=== PATIENT | male | born 1950 | race Caucasian/White ===

== ENCOUNTER → 2021-01-21 13:20 | Outpatient (BNVA) | payer MEDICARE, OTHER, SELFPAY | PROVIDERS: PCP Family Medicine; Visit Provider Nurse Practitioner Gerontology | DX: E11.42 Type 2 diabetes mellitus with diabetic polyneuropathy (principal); E11.65 Type 2 diabetes mellitus with hyperglycemia; E11.29 Type 2 diabetes mellitus with other diabetic kidney complication; E66.09 Other obesity due to excess calories; R80.9 Proteinuria, unspecified; I10 Essential (primary) hypertension; E78.00 Pure hypercholesterolemia, unspecified; Z68.33 Body mass index [BMI] 33.0-33.9, adult; Z79.4 Long term (current) use of insulin | CPT/HCPCS: 82947; 99212 ==

== ENCOUNTER 2021-02-03 13:49 | Outpatient (REF) | payer MEDICARE, OTHER, SELFPAY ==
--- NOTE | 2021-02-03 | PFT_ITS ---
INDICATION: Nicotine dependence and cough. SPIROMETRY: The FEV1 to FVC 84% with an FEV1 of 2.92 L, which is 96% predicted, and an FVC of 3.48 L, which is 88% predicted. No significant response to bronchodilators noted. Maximum voluntary ventilation 101% predicted. LUNG VOLUMES: Total lung capacity 85% predicted. DIFFUSION CAPACITY: DLCO 92% predicted. COMPARISONS: None available. INTERPRETATION: No obstructive nor restrictive ventilatory defects have been identified. No significant response to bronchodilators noted. Normal maximum voluntary ventilation. Lung volumes are low normal. Diffusion capacity is within normal limits. Clinical correlation warranted. Jerad Fong MD MR/MODL / [id number]
== END 2021-02-03 13:50 | disposition home or self-care (01) ==
LOC: HO.RESP 13:49
PROVIDERS: PCP Family Medicine; Visit Provider Family Medicine
DX: F17.200 Nicotine dependence, unspecified, uncomplicated (principal)
CPT/HCPCS: 94060; 94727; 94729; Q3014

== ENCOUNTER 2021-03-25 14:38 | Outpatient (REF) | payer MEDICARE, OTHER, SELFPAY ==
--- NOTE | ~2021-03-25 | CT_ITS ---
EXAMINATION: CT CHEST SCREENING CLINICAL INFORMATION: Nicotine dependence. COMPARISON: None. TECHNIQUE: Multidetector volumetric CT imaging of the chest is performed without contrast using low dose technique. Additional 2D coronal and sagittal reformatted images and axial 3D maximum intensity projection (MIP) images are generated on the CT workstation. This CT examination was performed using dose optimization techniques as appropriate, variously including the following: *Automated exposure control *Adjustment of mA and/or kV according to patient size (this includes techniques or standardized protocols for targeted exams where dose is matched to indication/reason for exam; i.e. extremities or head) *Use of iterative reconstruction technique DLP: 70 mGy-cm FINDINGS: LUNGS: The lungs are well expanded without any acute pneumonic process. There is a 3 mm calcified nodule left upper lobe axial image 104/6, 1 mm subpleural calcified nodule right upper lobe axial image 130/6, 2 mm calcified nodule right lower lobe axial image 179/6, 3 mm noncalcified nodule right lower lobe adjacent to the major fissure axial image 185/6. Mild 5 mm focal nodular thickening along the right minor fissure axial image 200/6, 2 mm calcified nodule in the lingula axial image 242/6. There is no mass, ground-glass density or atelectatic changes. MEDIASTINUM: The heart size and the great vessels are normal caliber. There are coronary artery calcifications. The central trachea and the bronchi are widely patent. The thyroid lobes are symmetrical and normal. PLEURA: There is no pleural effusion. No pleural mass or thickening. AXILLA: There are small scattered axillary lymph nodes. UPPER ABDOMEN: Visualized liver, spleen, pancreas and bilateral adrenal glands are unremarkable. OSSEOUS STRUCTURES: There is moderate ventral spondylosis dorsal spine. No lytic or sclerotic process seen. CT/CT lung screening IMPRESSION: Several calcified nodules measuring in the range of 1 to 3 mm. There is a 4 mm nodule in the right minor fissure likely an intrafissural lymph node. A 3 mm noncalcified nodule is seen in the right lower lobe. ASSESSMENT: Lung-RADS category 2: Benign. RECOMMENDATION: Low-dose annual CT chest.
== END 2021-03-25 14:39 | disposition home or self-care (01) ==
LOC: HO.CT 14:38
PROVIDERS: Visit Provider Physician Assistant Medical
DX: Z12.2 Encounter for screening for malignant neoplasm of respiratory organs (principal); F17.210 Nicotine dependence, cigarettes, uncomplicated
CPT/HCPCS: 71271; G0296

== ENCOUNTER → 2021-06-15 07:26 | Outpatient (BNVA) | payer MEDICARE, MEDICAID, SELFPAY | PROVIDERS: PCP Family Medicine; Visit Provider Nurse Practitioner Gerontology | CPT/HCPCS: Q3014 ==

== ENCOUNTER 2021-06-22 05:58 | Outpatient (REF) | payer MEDICARE, MEDICAID, SELFPAY ==
[2021-06-22 07:33] LABS: Alanine Aminotransferase 13 U/L (0-40); Albumin Level 4.1 g/dL (3.5-5.0); Alkaline Phosphatase 108 U/L (39-117); Anion Gap 14 (12-20); Aspartate Amino Transferase 15 U/L (5-37); Bilirubin Total 0.4 mg/dL (0.0-1.0); Blood Urea Nitrogen 15 mg/dL (9-16); Calcium 9.2 mg/dL (8.4-10.2); Carbon Dioxide 36 mmol/L (22-29); Chloride 98 mmol/L (96-108); Cholesterol 172 mg/dL; Estimated Glomerular Filt Rate > 60; Glucose Fasting 104 mg/dL (60-99); HDL Cholesterol 36 mg/dL; LDL Cholesterol Calculated 87 mg/dl; Potassium 3.7 mmol/L (3.3-5.1); Sodium 144 mmol/L (135-145); Total Protein 7.1 g/dL (6.5-8.0); Triglycerides 247 mg/dL
[2021-06-22 07:40] LABS: Estimated Average Glucose 203 mg/dL; Hemoglobin A1c % 8.7 %
[2021-06-22 07:57] LABS: Free T4 (Free Thyroxine) 0.96 ng/dL (0.71-1.85); Thyroid Stimulating Hormone 1.51 uIU/mL (0.32-4.0)
[2021-06-22 08:02] LABS: Creatinine Urine 113.26 mg/dL; Microalbum/Creatinine Ratio Ur 117.4 ug/mg cr
[2021-06-22 08:25] LABS: Vitamin B12 547 pg/mL (200-900)
[2021-06-24 05:31] LABS: LDL Cholesterol Direct 91 mg/dL (<100)
== END 2021-06-22 05:59 | disposition home or self-care (01) ==
LOC: HO.LAB 05:58
PROVIDERS: PCP Family Medicine; Visit Provider Nurse Practitioner Gerontology
DX: E11.65 Type 2 diabetes mellitus with hyperglycemia (principal)
CPT/HCPCS: 36415; 80053; 80061; 82043; 82607; 83036; 83721; 84439; 84443

== ENCOUNTER → 2021-10-26 07:12 | Outpatient (BNVA) | payer MEDICARE, MEDICAID, SELFPAY | PROVIDERS: PCP Family Medicine; Visit Provider Nurse Practitioner Gerontology | DX: E11.42 Type 2 diabetes mellitus with diabetic polyneuropathy (principal); E11.65 Type 2 diabetes mellitus with hyperglycemia; E11.29 Type 2 diabetes mellitus with other diabetic kidney complication; I10 Essential (primary) hypertension; R80.9 Proteinuria, unspecified; E78.00 Pure hypercholesterolemia, unspecified; E66.09 Other obesity due to excess calories; Z68.33 Body mass index [BMI] 33.0-33.9, adult; Z79.4 Long term (current) use of insulin | CPT/HCPCS: 82947; 99212 ==

== ENCOUNTER → 2021-12-22 08:04 | Outpatient (BNVA) | payer MEDICARE, MEDICAID, SELFPAY | PROVIDERS: PCP Family Medicine; Visit Provider Registered Nurse Diabetes Educator | DX: E11.65 Type 2 diabetes mellitus with hyperglycemia (principal) | CPT/HCPCS: 99211 ==

== ENCOUNTER → 2023-01-22 10:44 | Outpatient (BNVA) | payer MEDICARE, MEDICAID, SELFPAY | PROVIDERS: PCP Family Medicine; Visit Provider Surgery ==

== ENCOUNTER 2023-07-12 09:46 | Outpatient (REF) | payer MEDICARE, MEDICAID, SELFPAY | END 2023-07-12 09:47 | disposition home or self-care (01) | LOC: HO.HHCL 09:46 | PROVIDERS: Visit Provider Family Medicine | DX: E11.65 Type 2 diabetes mellitus with hyperglycemia (principal); Z11.59 Encounter for screening for other viral diseases; Z79.4 Long term (current) use of insulin | CPT/HCPCS: 36415; 82570; 84156; 86803; 87522 ==

== ENCOUNTER 2023-07-30 15:12 | Outpatient (AMB) | payer MEDICARE, MEDICAID, SELFPAY ==
--- NOTE | 2023-07-30 15:31 | MHC.OFFVIS ---
Intake Vital Signs 07/30/23 15:39 Weight 192 lb BP 138/65 Blood Pressure Location Rt brachial Position Sitting Pulse 102 H Intake Visit Reasons: recall colonoscopy screening Intake Note: This patient presents for a recall colonoscopy screening. Patient c/o reports no complaints at this time. Saw Maker Required: No Accompanied by: Self / Same As Patient Allergies No Known Allergies Allergy (Unverified 07/30/23 15:40) Medication List - Last Reconciled 07/30/23 by Ashok Bo MD amlodipine 5 mg PO DAILY aspirin 81 mg PO QAM atorvastatin 80 mg PO DAILY blood sugar diagnostic As directed dulaglutide (Trulicity) 1.5 mg (0.5 mL) subcut QWEEK 28 days empagliflozin (Jardiance) 25 mg PO QAM hydrochlorothiazide 25 mg PO DAILY insulin glargine (Lantus Solostar U-100 Insulin) 54 units (0.54 mL) subcut QPM insulin lispro (Humalog KwikPen (U-100) Insulin) 12 units breakfast, 14 units lunch, 16 units dinner, + 2 units for bg over 200 subcut 3 times a day; lisinopril 10 mg PO DAILY metformin 850 mg PO BID methadone 10 mg PO DAILY sennosides (Natural Senna Laxative) 8.6 mg PO DAILY PRN HPI recall colonoscopy screening HPI Details 72-year-old male here to schedule for a follow-up colonoscopy. He has a family history of colon cancer and he undergoes screening colonoscopy every 5 years. His last colonoscopy in 2018 showed 1 tubular adenoma. He denies any GI complaints. He says he feels well overall. His brother was diagnosed to have colon cancer at age of 48. [facility] Medical History (Updated 07/30/23 @ 16:23 by Ashok Bo MD) Family history of colon cancer History of opioid abuse Personal history of nicotine dependence Tubular adenoma of colon Type 2 diabetes mellitus with other diabetic kidney complication Proteinuria Type 2 diabetes mellitus with diabetic polyneuropathy HLD (hyperlipidemia) Obesity due to excess calories BPH (benign prostatic hyperplasia) COPD (chronic obstructive pulmonary disease) HTN (hypertension) Diabetes type 2, uncontrolled (~2009) Surgical History History of colonoscopy History of total left knee replacement Hx of appendectomy History of back surgery Family History Father Cancer Mother Diabetes Sister Diabetes Sister Diabetes Social History Household Members: None Alcohol intake: current Alcohol intake frequency: does not drink Patient Tobacco Use Status: Current everyday Tobacco user Tobacco use type: Cigarette Cigarettes Per Day: 3 Years Smoked: 51 (onset 19, 1ppd x 51 yrs, now 1/4ppd - 45+PYH) Review of Systems Const Denies chills and Denies fever(s) Card Denies chest pain, Denies dyspnea and Denies dyspnea on exertion Resp Denies cough, Denies dyspnea and Denies dyspnea on exertion GI Denies hematochezia and Denies change in bowel habits Denies hematuria and Denies difficulty urinating Musc Denies back pain and Denies limited range of motion Neuro Denies focal weakness and Denies convulsions Psych Denies depression and Denies mood swings Physical Exam Vital Signs: Last Vital Signs Pulse 102 H 07/30/23 15:39 BP 138/65 07/30/23 15:39 Const General: comfortable and no acute distress Orientation/consciousness: patient oriented x3 Neck Neck: Yes no lymphadenopathy Resp Auscultation: clear to auscultation bilaterally Cardio Rhythm: regular rhythm GI Palpation (GI): Soft to palpation, nontender and no guarding Neuro General: patient oriented x3 Assessment & Plan Assessment & Plan (1) Family history of colon cancer: Code(s): Z80.0 - Family history of malignant neoplasm of digestive organs Plan: In view of his family history of colon cancer, he is due for a repeat this year. I reviewed with him the technique of colonoscopy. I discussed the risks including but not limited to bleeding, perforation, as well as the benefits and alternatives He understands and wants to proceed. Coding Level of Care Code New Pt Level 3 (09894) Diagnoses Family history of colon cancer Z80.0
[2023-07-30 15:39] VITALS: BP 138/65; PULSE 102
== END 2023-07-30 16:25 ==
PROVIDERS: PCP Family Medicine; Visit Provider Surgery
DX: Z80.0 Family history of malignant neoplasm of digestive organs (principal)
CPT/HCPCS: 99203

== ENCOUNTER → 2023-07-30 15:12 | Outpatient (BNVA) | payer MEDICARE, MEDICAID, SELFPAY | PROVIDERS: PCP Family Medicine; Visit Provider Surgery | DX: Z86.010 Personal history of colon polyps (principal); Z80.0 Family history of malignant neoplasm of digestive organs | CPT/HCPCS: 99202 ==

== ENCOUNTER 2023-11-02 06:46 | Day surgery (SDC) | payer MEDICARE, MEDICAID, SELFPAY ==
--- NOTE | 2023-10-31 14:59 | HO.ANESPROP2 ---
Documented by User: Keila Adams NP 10/31/23 15:00 HPI - Anesthesia Eval Consult details Narrative: 72yo M for Colonoscopy, possible Polypectomy Methadone daily Anesthesia Pre-Procedure Meds Is the patient on any of the following meds?: Dulaglutide (Trulicity) and Any other SGL-1 drugs or drugs that delay gastric emptying (Jardiance) PMFSH Active Problems Active Problems: All Active Problems Family history of colon cancer (Acute) Diabetes type 2, uncontrolled (Acute ~2009) Type 2 diabetes mellitus with other diabetic kidney complication (Acute) Type 2 diabetes mellitus with diabetic polyneuropathy (Acute) Proteinuria (Acute) HTN (hypertension) (Acute) HLD (hyperlipidemia) (Acute) Obesity due to excess calories (Acute) Personal history of nicotine dependence (Acute) Past Medical History Medical History Family history of colon cancer History of opioid abuse Personal history of nicotine dependence Tubular adenoma of colon Type 2 diabetes mellitus with other diabetic kidney complication Proteinuria Type 2 diabetes mellitus with diabetic polyneuropathy HLD (hyperlipidemia) Obesity due to excess calories BPH (benign prostatic hyperplasia) COPD (chronic obstructive pulmonary disease) HTN (hypertension) Diabetes type 2, uncontrolled (~2009) Family History Family History Father Cancer Mother Diabetes Sister Diabetes Sister Diabetes Surgical History Surgical History History of colonoscopy History of total left knee replacement Hx of appendectomy History of back surgery Social History Social History Household Members: None Alcohol intake: current Alcohol intake frequency: does not drink Patient Tobacco Use Status: Never used Tobacco Tobacco use type: Cigarette Cigarettes Per Day: 3 Years Smoked: 51 (onset 19, 1ppd x 53 yrs, now 1/4ppd - 45+PYH) Use of substances other than those prescribed or required for medical reasons: No Are you DNR?: No Advance Directives: No Advance Directives Information Provided: Yes Meds Allergies Allergy/AdvReac Type Severity Reaction Status Date / Time No Known Allergies Allergy Verified 11/02/23 07:12 Home Medications ?Medication ?Instructions ?Recorded ?Confirmed ?Last Taken ?Type amlodipine 5 mg tablet 5 mg PO DAILY 01/21/21 11/02/23 11/01/23 History atorvastatin 80 mg tablet 80 mg PO DAILY 01/21/21 11/02/23 11/01/23 History blood sugar diagnostic #10 ea 01/21/21 07/30/23 Unknown History hydrochlorothiazide 25 mg tablet 25 mg PO DAILY 01/21/21 11/02/23 11/01/23 History lisinopril 10 mg tablet 10 mg PO DAILY 01/21/21 11/02/23 11/01/23 History metformin 850 mg tablet 850 mg PO BID 01/21/21 11/02/23 11/01/23 History methadone 10 mg tablet 10 mg PO DAILY 01/21/21 07/30/23 Unknown History sennosides 8.6 mg tablet (Natural 8.6 mg PO DAILY PRN constipation 01/21/21 11/02/23 11/01/23 History Senna Laxative) Assessment and Plan Assessment Anesthesia Assessment: Chart Reviewed Documented by User: Sherie Lee MD 11/02/23 08:08 HPI - Anesthesia Eval Anesthesia Pre-Procedure Meds If Yes to any meds - educate patient: Pt education - increased risk of aspiration and Pt education - possibility of cancelled proc at provider's discretion PMFSH Past Medical History Medical History Family history of colon cancer History of opioid abuse Personal history of nicotine dependence Tubular adenoma of colon Type 2 diabetes mellitus with other diabetic kidney complication Proteinuria Type 2 diabetes mellitus with diabetic polyneuropathy HLD (hyperlipidemia) Obesity due to excess calories BPH (benign prostatic hyperplasia) COPD (chronic obstructive pulmonary disease) HTN (hypertension) Diabetes type 2, uncontrolled (~2009) Family History Family History Father Cancer Mother Diabetes Sister Diabetes Sister Diabetes Family history of problems with anesthesia: No Surgical History Surgical History History of colonoscopy History of total left knee replacement Hx of appendectomy History of back surgery History of Problems with Anesthesia: No Social History Social History Household Members: None Alcohol intake: current Alcohol intake frequency: does not drink Patient Tobacco Use Status: Never used Tobacco Tobacco use type: Cigarette Cigarettes Per Day: 3 Years Smoked: 51 (onset 19, 1ppd x 53 yrs, now 1/4ppd - 45+PYH) Use of substances other than those prescribed or required for medical reasons: No Are you DNR?: No Advance Directives: No Advance Directives Information Provided: Yes Meds Allergies Allergy/AdvReac Type Severity Reaction Status Date / Time No Known Allergies Allergy Verified 11/02/23 07:12 Home Medications ?Medication ?Instructions ?Recorded ?Confirmed ?Last Taken ?Type amlodipine 5 mg tablet 5 mg PO DAILY 01/21/21 11/02/23 11/01/23 History atorvastatin 80 mg tablet 80 mg PO DAILY 01/21/21 11/02/23 11/01/23 History blood sugar diagnostic #10 ea 01/21/21 07/30/23 Unknown History hydrochlorothiazide 25 mg tablet 25 mg PO DAILY 01/21/21 11/02/23 11/01/23 History lisinopril 10 mg tablet 10 mg PO DAILY 01/21/21 11/02/23 11/01/23 History metformin 850 mg tablet 850 mg PO BID 01/21/21 11/02/23 11/01/23 History methadone 10 mg tablet 10 mg PO DAILY 01/21/21 07/30/23 Unknown History sennosides 8.6 mg tablet (Natural 8.6 mg PO DAILY PRN constipation 01/21/21 11/02/23 11/01/23 History Senna Laxative) Exam Airway Mallampati Class: I (edentulous) TM Dist: >3cm Neck ROM: Full Heart: rrr Lungs: cta Assessment and Plan Assessment Anesthesia Assessment: Anesthesia Plan Discussed Final Anesthetic Review Family History of Problems with Anesthesia: No History of Problems with Anesthesia: No NPO: Yes ASA Class: III Final Preanesthetic Review: No Changes in Pt Med Stat, Meds/Allgs Chart Reviewed and Consent Obtained/Reviewed Patient Risk: Intermediate Procedure Risk: Low Anesthetic Plan Anesthetic Plan: MAC: Disposition: Standard PACU
[2023-11-01 06:27] VITALS: BMI 30.1
[2023-11-02 07:04] VITALS: BMI 29.8
[2023-11-02 07:44] VITALS: BP 154/84; PULSE 84; RESP 16; TEMP 36.4; O2SAT 92
[2023-11-02] MEDS: Lactated Ringers 1,000 ML 100 ML IVCONT (07:45)
[2023-11-02 07:53] LABS: Glucose, Whole Blood 194 mg/dL (60-115)
--- NOTE | 2023-11-02 08:43 | MHC.SHP ---
Pre-Procedural Eval Section A - 24 Hr Update-Section A only Date of Service: 11/02/23 Section B - Complete if H&P > 30 days Chief Complaint: Family history of malignant neoplasm of digestive Details of Present Illness: has FH of colon CA Relevant Family History (Specify if Yes): Yes Relevant Social History: None Present Medications: see Short Stay Collaborative assessment Medical History: Significant History (DM HTN) History of Previous Operations: No relevant previous surgery Allergies: Allergies Allergy/AdvReac Type Severity Reaction Status Date / Time No Known Allergies Allergy Verified 11/02/23 07:12 Review of Systems Sugical H&P ROS: Negative: Constitution, Cardiovascular, Respiratory, Neurological, Psychiatric, Hem-Onc, Allergic/Immunologic, Gastrointestinal, Genitourinary, Musculoskeletal, Integumentary, Endocrine and Eyes/Ears/Nose/Throat Exam Surgical H&P Exam: Normal: HEENT, Normal: Heart, Normal: Lungs, Normal: Extremities, Normal: Abdomen, Normal: Skin and Normal: Neurological Plan Diagnosis/Plan: Unchanged I have reviewed the history and physical and performed a pertinent physical examination on my patient. No changes have occurred unless specified. Time Spent With Patient Time: Total time managing care of this patient today ____ minutes.
--- NOTE | 2023-11-02 09:26 | W.PM.OPN ---
Operative Note Operative Note Date of Service: 11/02/23 Narrative: Preop diagnosis: Family history of colon cancer Postop diagnosis: Normal colonoscopy findings Procedure: Colonoscopy Surgeon: Ashok Bo MD The patient is a 72-year-old male with family history of colon cancer who undergoes a colonoscopy every 5 years. He understands the technique of the procedure as well as the risks, benefits, and alternatives. The patient was brought to the operating room and placed in left lateral decubitus position under monitored anesthesia care. A surgical time-out was done. A full digital rectal exam was done and this did not reveal any significant anal lesions. The tip of the Olympus colonoscope was gently introduced through the anal orifice advanced with insufflation all the way to the cecum. The cecum was intubated. The cecum was identified by visualization of the ileocecal valve as well as the appendiceal orifice. The cecal mucosa was unremarkable. The scope was gradually withdrawn with careful examination of the entire colonic mucosa being done with scope withdrawal. The patient had adequate bowel prep so it was unlikely that any lesion may have been missed. The rectum was reached and there were no lesions seen. The anal canal was unremarkable. The scope was then withdrawn completely with desufflation. The patient tolerated the procedure well. There were no immediate complications. His next colonoscopy for screening may be in the next 5 years.
[2023-11-02 09:30] VITALS: BP 102/57; PULSE 66; RESP 16; TEMP 36.6; O2SAT 93
[2023-11-02 09:45] VITALS: BP 108/69; PULSE 74; RESP 16; TEMP 36.7; O2SAT 100
[2023-11-02 09:55] VITALS: BP 126/65; PULSE 69; RESP 18; TEMP 36.7; O2SAT 98
== END 2023-11-02 10:30 | disposition home or self-care (01) ==
PROVIDERS: Visit Provider Surgery
PROC: 0DBE8ZZ Excision of Large Intestine, Via Natural or Artificial Opening Endoscopic (ICD-10-PCS; CPT G0105; principal; 2023-11-02 08:30)
DX: Z12.11 Encounter for screening for malignant neoplasm of colon (principal); Z80.0 Family history of malignant neoplasm of digestive organs; Z86.010 Personal history of colon polyps; E11.42 Type 2 diabetes mellitus with diabetic polyneuropathy; E11.29 Type 2 diabetes mellitus with other diabetic kidney complication; R80.9 Proteinuria, unspecified; I10 Essential (primary) hypertension; J44.9 Chronic obstructive pulmonary disease, unspecified; E78.5 Hyperlipidemia, unspecified; Z79.4 Long term (current) use of insulin; Z79.84 Long term (current) use of oral hypoglycemic drugs; Z79.85 Long-term (current) use of injectable non-insulin antidiabetic drugs; Z79.82 Long term (current) use of aspirin; Z79.899 Other long term (current) drug therapy; F11.20 Opioid dependence, uncomplicated; F17.210 Nicotine dependence, cigarettes, uncomplicated
CPT/HCPCS: G0105; 82947; J2704

== ENCOUNTER → 2023-11-02 06:46 | Outpatient (BNV) | payer MEDICARE, MEDICAID, SELFPAY | PROVIDERS: Visit Provider Surgery | DX: Z12.11 Encounter for screening for malignant neoplasm of colon (principal); Z80.0 Family history of malignant neoplasm of digestive organs | CPT/HCPCS: G0105 ==

== ENCOUNTER 2023-11-21 10:43 | Outpatient (AMB) | payer MEDICARE, MEDICAID, SELFPAY ==
--- NOTE | 2023-11-21 10:58 | A.OFFVIS_ITS ---
Intake Visit Reasons: s/p colonoscopy Intake Note: This patient presents for an assessment s/p colonoscopy. Patient c/o; reports no complaints. Head Of Academic Technology Required: No Accompanied by: Self / Same As Patient Allergies No Known Allergies Allergy (Verified 11/21/23 11:02) HPI HPI s/p colonoscopy: Details: He underwent colonoscopy last 11/02/2023 for family history of colon cancer. He tolerated this procedure well and denies any complaints. [facility] Medical History Family history of colon cancer History of opioid abuse Personal history of nicotine dependence Tubular adenoma of colon Type 2 diabetes mellitus with other diabetic kidney complication Proteinuria Type 2 diabetes mellitus with diabetic polyneuropathy HLD (hyperlipidemia) Obesity due to excess calories BPH (benign prostatic hyperplasia) COPD (chronic obstructive pulmonary disease) HTN (hypertension) Diabetes type 2, uncontrolled (~2009) Surgical History History of colonoscopy History of total left knee replacement Hx of appendectomy History of back surgery Family History Father Cancer Mother Diabetes Sister Diabetes Sister Diabetes Social History Household Members: None Alcohol intake: current Alcohol intake frequency: does not drink Patient Tobacco Use Status: Never used Tobacco Tobacco use type: Cigarette Cigarettes Per Day: 3 Years Smoked: 51 (onset 19, 1ppd x 53 yrs, now 1/4ppd - 45+PYH) Review of Systems Const Denies chills and Denies fever(s) Card Denies chest pain, Denies dyspnea and Denies dyspnea on exertion Resp Denies cough, Denies dyspnea and Denies dyspnea on exertion GI Denies hematochezia and Denies change in bowel habits Denies hematuria and Denies difficulty urinating Musc Denies back pain and Denies limited range of motion Neuro Denies focal weakness and Denies convulsions Psych Denies depression and Denies mood swings Physical Exam Const General: comfortable and no acute distress Resp Effort & Inspection: normal respiratory effort GI Palpation (GI): Soft to palpation, not firm and nontender Assessment & Plan Assessment & Plan (1) Family history of colon cancer: Code(s): Z80.0 - Family history of malignant neoplasm of digestive organs Category: Medical Plan: Status post colonoscopy. I did not find any polyps or any lesions. I recommended him to continue to undergo a colonoscopy every 5 years because of his family history. Coding Level of Care Code Global (25551) Diagnoses Family history of colon cancer Z80.0
== END 2023-11-21 11:19 | disposition home or self-care (01) ==
PROVIDERS: Visit Provider Surgery
DX: Z80.0 Family history of malignant neoplasm of digestive organs (principal)
CPT/HCPCS: 99024

== ENCOUNTER → 2023-11-21 10:43 | Outpatient (BNVA) | payer MEDICARE, MEDICAID, SELFPAY | PROVIDERS: Visit Provider Surgery | DX: Z71.2 Person consulting for explanation of examination or test findings (principal); Z80.0 Family history of malignant neoplasm of digestive organs; Z98.890 Other specified postprocedural states | CPT/HCPCS: 99212 ==

== ENCOUNTER 2024-01-07 08:17 | Outpatient (REF) | payer MEDICARE, MEDICAID, SELFPAY ==
[2024-01-07 12:25] LABS: Alanine Aminotransferase 13 U/L (0-40); Albumin Level 3.7 g/dL (3.5-5.0); Alkaline Phosphatase 75 U/L (39-117); Anion Gap 14 (12-20); Aspartate Amino Transferase 17 U/L (5-37); Bilirubin Direct < 0.2 mg/dL (0.0-0.5); Bilirubin Total 0.2 mg/dL (0.0-1.0); Blood Urea Nitrogen 18 mg/dL (9-16); Calcium 9.1 mg/dL (8.4-10.2); Carbon Dioxide 32 mmol/L (22-29); Chloride 101 mmol/L (96-108); Cholesterol 109 mg/dL (<200); Estimated Glomerular Filt Rate > 60; Glucose Random 87 mg/dL (60-115); HDL Cholesterol 39 mg/dL (>40); LDL Cholesterol Calculated 53 mg/dL (<100); Sodium 143 mmol/L (135-145); Total Protein 6.8 g/dL (6.5-8.0); Triglycerides 86 mg/dL (<150)
[2024-01-07 12:50] LABS: Vitamin B12 372 pg/mL (200-900)
[2024-01-07 13:02] LABS: Creatinine Urine 121.15 mg/dL; Microalbum/Creatinine Ratio Ur 69.3 ug/mg cr (<30)
== END 2024-01-07 08:18 | disposition home or self-care (01) ==
LOC: HO.HHCL 08:17
PROVIDERS: Visit Provider Family Medicine
DX: E11.65 Type 2 diabetes mellitus with hyperglycemia (principal); Z79.4 Long term (current) use of insulin
CPT/HCPCS: 36415; 80048; 80061; 80076; 82043; 82570; 82607

== ENCOUNTER 2024-01-15 12:01 | Outpatient (REF) | payer MEDICARE, OTHER, SELFPAY ==
--- NOTE | ~2024-01-15 | XR_ITS ---
EXAMINATION: XR TOE, RIGHT XR FOOT, RIGHT CLINICAL INFORMATION: Pain right foot COMPARISON: None available. TECHNIQUE: 2 views of the right first toe 3 views of the right foot FINDINGS: No acute visible fracture or dislocation. Increased flexion at the level of the distal interphalangeal joints. Multi joint arthritic changes. Joint space alignment otherwise maintained. Questionable soft tissue defect involving the tuft and plantar aspect of the first toe though patient positioning limits evaluation. Atherosclerotic calcifications are noted. XR/XR toe RT min 2V IMPRESSION: 1. No acute visible fracture or dislocation. 2. Increased flexion at the level of the distal interphalangeal joints. 3. Multi joint arthritic changes. 4. Questionable soft tissue defect involving the tuft and plantar aspect of the first toe though patient positioning limits evaluation. 5. If high clinical concern for osteomyelitis consider further evaluation with MRI.
--- NOTE | ~2024-01-15 | XR_ITS ---
EXAMINATION: XR TOE, RIGHT XR FOOT, RIGHT CLINICAL INFORMATION: Pain right foot COMPARISON: None available. TECHNIQUE: 2 views of the right first toe 3 views of the right foot FINDINGS: No acute visible fracture or dislocation. Increased flexion at the level of the distal interphalangeal joints. Multi joint arthritic changes. Joint space alignment otherwise maintained. Questionable soft tissue defect involving the tuft and plantar aspect of the first toe though patient positioning limits evaluation. Atherosclerotic calcifications are noted. XR/XR foot RT min 3V IMPRESSION: 1. No acute visible fracture or dislocation. 2. Increased flexion at the level of the distal interphalangeal joints. 3. Multi joint arthritic changes. 4. Questionable soft tissue defect involving the tuft and plantar aspect of the first toe though patient positioning limits evaluation. 5. If high clinical concern for osteomyelitis consider further evaluation with MRI.
== END 2024-01-15 12:02 | disposition home or self-care (01) ==
LOC: HO.HHCX 12:01
PROVIDERS: Visit Provider Nurse Practitioner Family
DX: M79.674 Pain in right toe(s) (principal); M79.671 Pain in right foot
CPT/HCPCS: 73630; 73660

== ENCOUNTER 2024-04-08 15:14 | Outpatient (REF) | payer MEDICARE, MEDICAID, SELFPAY ==
[2024-04-08 16:33] LABS: MANUAL DIFF FLAG NO
[2024-04-08 16:37] LABS: Basophils Absolute Auto 0.1 X10*3/uL (0.0-0.2); Basophils Percent Auto 0.6 % (0-2); Eosinophils Absolute Auto 0.4 X10*3/uL (0.0-0.4); Hematocrit 42.6 % (42.0-52.0); Imm Gran Abs Auto 0.03 X10*3/uL (0.00-0.03); Imm Gran Pct Auto 0.3 % (0.0-0.4); Lymphocytes Percent Auto 19.2 % (20-40); Mean Corpuscular HGB Conc 32.9 g/dl (31.0-36.0); Mean Corpuscular Hemoglobin 28.4 pg (27.0-33.0); Mean Corpuscular Volume 86.4 fL (80.0-98.0); Mean Platelet Volume 10.9 fL (9.4-12.4); Monocytes Absolute Auto 0.4 X10*3/uL (0.1-1.2); Monocytes Percent Auto 3.7 % (2-11); Neutrophils Absolute Auto 7.3 x10*3/uL (2.0-8.3); Neutrophils Percent Auto 72.2 % (45-73); Platelet Count 264 X10*3/uL (160-400); Red Blood Count 4.93 X10*6/uL (4.60-5.80); Red Cell Distribution Width 14.7 % (11.0-16.0); White Blood Count 10.1 X10*3/uL (4.8-10.8)
[2024-04-08 17:20] LABS: Erythrocyte Sedimentation Rate 36 MM/HR (0-15)
[2024-04-10 10:03] LABS: RPR Rapid Plasma Reagin NON-REACTIVE (NON-REACTIVE)
== END 2024-04-08 15:15 | disposition home or self-care (01) ==
LOC: HO.HHCL 15:14
PROVIDERS: Visit Provider Nurse Practitioner Primary Care
DX: R21 Rash and other nonspecific skin eruption (principal)
CPT/HCPCS: 36415; 85025; 85652; 86592

== ENCOUNTER 2024-11-12 10:03 | Outpatient (REF) | payer MEDICARE, MEDICAID, SELFPAY ==
--- OUTSIDE RECORDS SUMMARY | 2024-11-12 11:13 | XMS_ITS | Encounter Summary ---
Author Organization [employer] Address [address] [facility] [address] [place] [address] Care Team Providers Care Rivet Catcher Name Role Phone Vanessa Arias MD Primary Care Provider [phone] France Ferguson PharmD Unavailable Eva Mendez RN Unavailable [phone] Deloris Crowe OD Unavailable Ashok Bo MD Unavailable [phone] Reason for Visit * Reason Onset Date Comments February Recalls 11/11/2024 Encounter Details Date Type Department Care Team (Late st Contact Info) Description 11/11/2024 Telephone [facility] [address] [place], [place] [phone] Vanessa Arias MD [address] [place], [place] [phone] February Recalls Social History Tobacco Use Types Packs/Day Years Used Date Smoking Tobacco: Former Cigarettes 0.5 50 1 09/05/1972 - 07/05/2023 Passive Smoke Exposure: Past Smokeless Tobacco: Never Alcohol Use Standard Drinks/Week Comments Never 0 (1 standard drink = 0.6 oz pur e alcohol) Depression Answer Date Recorded Patient Health Questionnaire-9 Score 0 03/05/2024 Patient Health Questionnaire-9 Score 0 03/05/2024 Last PHQ-9: Questionnaire Data Not on file 0 03/05/2024 Housing Stability Answer Date Recorded What is your housing situation today? I have butch mello 02/15/[address] you li ve. Do you have problems with any of the following? None of the above 02/15/2024 Food Insecurity Answer Date Recorded Within the past 12 months, y ou worried that your food would run out before you got money to buy more: Sometimes True 2024 Within the past 12 months,th e food you bought just didn't last and you didn't have enough money to get more: Sometimes True 09/08/2024 Transportation Answer Date Recorded In the past 12 months, has l ack of transportation kept you from medical appts, meetings, work or from getting things needed for daily living? No 09/08/2024 Utilities Answer Date Recorded In the past 12 months, has t he electric, gas, oil or water company threatened to shut off services in your home? No 02/15/2024 Depression Answer Date Recorded Patient Health Questionnaire-2 Score 0 03/05/2024 Internet Access Answer Date Recorded Internet Access Q1 No 09/08/2024 Internet Access Q2 I do not want or need it 09/2024 Sex and Gender Information Value Date Recorded Sex Assigned at Male 05/08/2022 10:16 AM EDT Legal Sex Male 10:16 AM EDT Gender Identity Male 05/08/2022 10:16 AM EDT Sexual Orientation Straight 05/08/2022 10 :16 AM EDT documented as of this encounter Miscellaneous Notes * Telephone Encounter - Liat Schulte MA - 11/11/2024 10:44 AM EDT Appointment reminder sent via mail. documented in this encounter Plan of Treatment Upcoming Encounters Date Type Department Care Team (Late st Contact Info) Description 11/14/2024 11:00 AM EDT Medication Management [facility] [address] [place] [phone] France Ferguson PharmD [address] [place] [address] 03/02/2025 10:30 AM EDT Office Visit [facility] [address] [place] [phone] Vanessa Arias MD [address] [place] [address] documented as of this encounter Goals Goal Patient Goal Type Associated Problems Recent Progress Patient-Stated? Author Blood Pressure < 140/90 Blood Pressure 127/73(2024 11:22 AM EDT) No Piers-Gambl e, France, PharmD Record your blood pressure once per day Blood Pressure No Piers-Gambl e, France, PharmD Hemoglobin A1c < 7 Result Component 8.3( 11:25 AM EDT) No Piers-Gambl e, France, PharmD Quit using tobacco (cigarettes, smokeless, etc) Tobacco Use No Piers-Gambl e, France, PharmD documented as of this encounter Visit Diagnoses Not on filedocumented in this encounter Additional Health Concerns Assessment Noted Time PHQ-9 Depression Total Score: 0 03/05/20 24 2:45 PM EDT documented as of this encounter Care Teams Rivet Catcher Relationship Specialty Start Date End Date Vanessa Arias MD [address] [place] [address] PCP - General Family Medicine 07/09/18 France Ferguson, UdayD [address] [place] [phone] Pharmacist Internal Medicine 11/30/22 Eva Mendez, AZAR [address] [place] [phone] Busher Helper Family Medicine 08/14/23 Deloris Crowe OD [address] [place] [phone] Optometry 06/20/24 Ashok Bo MD [address] [place] [address] Drive 3rd [place] [address] General Surgery 06/20/24 documented as of this encounter
--- OUTSIDE RECORDS SUMMARY | 2024-11-12 11:13 | XMS_ITS | Encounter Summary ---
Author Organization [employer] Address [address] [facility] [address]t [place] [address] Care Team Providers Care Manager [employer] Name Role Phone Vanessa Arias MD Primary Care Provider [phone] France Ferguson PharmD Unavailable Eva Mendez RN Unavailable [phone] Deloris Crowe OD Unavailable [phone] Ashok Bo MD Unavailable [phone] Encounter Details Date Type Department Care Team (Late st Contact Info) Description 02/28/2023 Telephone [facility] [address] [place], [place] [phone] Bryant Michelle DDS [address] [place] [address] Social History Tobacco Use Types Packs/Day Years Used Date Smoking Tobacco: Never Passive Smoke Exposure: Past Smokeless Tobacco: Never Alcohol Use Standard Drinks/Week Comments Never 0 (1 standard drink = 0.6 oz pur e alcohol) Depression Answer Date Recorded Patient Health Questionnaire-9 Score 0 01/05/2023 Depression Answer Date Recorded Patient Health Questionnaire-2 Score 0 01/05/2023 Sex and Gender Information Value Date Recorded Sex Assigned at Male 05/08/2022 10:16 AM EDT Legal Sex Male 10:16 AM EDT Gender Identity Male 05/08/2022 10:16 AM EDT Sexual Orientation Straight 05/08/2022 10 :16 AM EDT documented as of this encounter Miscellaneous Notes * Telephone Encounter - Katie Swanson - 02/28/2023 10:26 AM EDT Jamaal Lowery Jhonny 1950 Patient called to confirm if 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 is 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 please 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 documented in this encounter Plan of Treatment Upcoming Encounters Date Type Department Care Team (Late st Contact Info) Description 11/14/2024 11:00 AM EDT Medication Management [facility] [address] [place] [phone] France Ferguson, PharmD [address] [place] [phone] 03/02/2025 10:30 AM EDT Office Visit [facility] [address] [place] [phone] Vanessa Arias MD [address] [place] [phone] documented as of this encounter Goals Goal Patient Goal Type Associated Problems Recent Progress Patient-Stated? Author Blood Pressure < 140/90 Blood Pressure 127/73(2024 11:22 AM EDT) No France Kimble, PharmD Hemoglobin A1c < 7 Result Component 8.3( 11:25 AM EDT) No France Kimble PharmD documented as of this encounter Visit Diagnoses Not on filedocumented in this encounter Additional Health Concerns Assessment Noted Time PHQ-9 Depression Total Score: 0 01/06/20 23 10:24 AM EDT documented as of this encounter Care Teams Manager Enterprise Content Management Relationship Specialty Start Date End Date Vanessa Arias MD [address] [place] [address] [phone] PCP - General Family Medicine 07/09/18 France Ferguson, PharmD [address] [place] [address] [phone] Pharmacist Internal Medicine 11/30/22 Eva Mendez, RN [address] [place] [address] Icu Specialist Family Medicine 08/14/23 Deloris Crowe OD [address] [place] [address] Optometry 06/20/24 Ashok Bo MD [address] [place] [address] 3rd [place] [address] General Surgery 06/20/24 documented as of this encounter
--- OUTSIDE RECORDS SUMMARY | 2024-11-12 11:13 | XMS_ITS | Encounter Summary ---
Author Organization [employer] Address [address] [place] [address] Care Team Providers Care Bakery Worker Conveyor Line Name Role Phone Vanessa Arias MD Primary Care Provider [phone] France Ferguson PharmD Unavailable Eva Mendez RN Unavailable [phone] Deloris Crowe OD Unavailable [phone] Ashok Bo MD Unavailable [phone] Reason for Referral * Consultation (Routine) - Authorized Specialty Diagnoses / Procedures Referred By Contac t Referred To Contact Podiatry Diagnoses Type 2 diabetes mellitus with hyperglycemia, with long-term current use of insulin ([facility]) Dystrophic nail Vanessa Arias MD [address] [place] [address] Phone: tel: fax: Oscar Ramirez DPM [address] [address] Phone: tel: fax: Referral ID Status Reason Start Date Expiration Date Visits Requested Visits Authorized [id number] Authorized Specialty Services Required 11/10/2024 11/10/2025 1 1 Encounter Details Date Type Department Care Team (Latest Contact Info) Description 11/10/2024 11:15 AM EDT Office Visit [facility] [address] [place] [address] Vanessa Arias MD [address] [place] [address] Type 2 diabetes mellitus with both eyes affected by mild nonproliferative retinopathy without macular edema, with long-term current use of insulin (CMS/HCC) (Primary Dx); Type 2 diabetes mellitus with hyperglycemia, with long-term current use of insulin (CMS/HCC); Methadone dependence (CMS/HCC); Dystrophic nail; Ulcer of left great toe due to diabetes mellitus (CMS/HCC); Overweight; Dietary counseling; Exercise counseling; Tobacco dependence syndrome Social History Tobacco Use Types Packs/Day Years [...] your housing situation today? I have butch funmilayo 02/15/[address] you li [...] AM EDT documented as of this encounter Last Filed Vital Signs Vital Sign Reading Time Taken Comments Blood Pressure 127/73 11/10/2024 11:22 AM EDT Pulse 95 11/10/2024 11:22 AM EDT Temperature 36.2 ??C (97.1 ??F) 11/10/2024 11:22 AM E DT Respiratory Rate 20 11/10/2024 11:22 AM EDT Oxygen Saturation 95% 11/10/2024 11:22 AM EDT Inhaled Oxygen Concentration - - Weight 90.3 kg (199 lb) 11/10/2024 11:22 AM EDT Height 170.2 cm (5' 7 ) 11/10/2024 11:22 AM EDT Body Mass Index 31.17 11/10/2024 11:22 AM EDT documented in this encounter Patient Instructions * Patient Instructions* Vanessa Arias MD - 11/10/2024 11:15 AM EDT To schedule your lung cancer screening test at [facility] please call [phone]. documented in this encounter Progress Notes * Vanessa Arias MD - 11/10/2024 11:15 AM EDT Subjective Patient ID: Jamaal Lowery is a 73 y.o. male with past medical history of type 2 diabetes, hypertension, tobacco dependence, opioid dependence stable on methadone who presents for follow-up type 2 diabetes. Saw [facility] 09/29/24 Plan: Increased trulicity to 3mg once weekly Glucose gel prescribed to use as needed for hypoglycemia [facility] outreached care management team to request follow up regarding patient concerns of food insecurity Patient reports forgetting previous instruction to increase lantus and has been continuing to administer 58 units once daily; agrees to increase lantus to 60 units once daily Discussed with PCP to recommend senior day program services to patient and [facility] services for additional support of which patient agrees to both: [facility] requested follow up from [facility] Pt reports he's doing quite well, although his A1C is up a little bit to 8.3, he's tolerating his higher dose of trulicity. He notes he has better stability of food. Pt reports that he missed his last [facility] appointment, but was rescheduled for this Sunday and he will be getting fasting labs prior . 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 We referred him for lung cancer screening in February of 2024. He missed the appointment, but I gave him the scheduling number to call today. Review of Systems Constitutional: Negative for fever and unexpected weight change. Respiratory: Negative for shortness of breath. Cardiovascular: Negative for chest pain. Gastrointestinal: Negative for abdominal pain. Endocrine: Negative for polydipsia, polyphagia and polyuria. Genitourinary: Negative for difficulty urinating. Objective Visit Vitals BP 127/73 (BP Location: Right arm, Patient Position: Sitting, BP Cuff Size: Adult) Pulse 95 Temp 97.1 ??F (36.2 ??C) (Temporal) Resp 20 Body mass index is 31.17 kg/m??. Physical Exam Constitutional: Appearance: Normal appearance. Cardiovascular: Rate and Rhythm: Normal rate and regular rhythm. Pulses: Dorsalis pedis pulses are 2+ on the right side and 2+ on the left side. Heart sounds: Normal heart sounds. Pulmonary: Effort: Pulmonary effort is normal. Breath sounds: Normal breath sounds. Musculoskeletal: Cervical back: Normal range of motion and neck supple. Right foot: No deformity or Charcot foot. Left foot: No deformity or Charcot foot. Feet: Right foot: Protective Sensation: 5 sites tested. 5 sites sensed. Skin integrity: Skin integrity normal. Toenail Condition: Right toenails are abnormally thick and long. Left foot: Protective Sensation: 5 sites tested. 5 sites sensed. Skin integrity: Skin integrity normal. Toenail Condition: Left toenails are abnormally thick and long. Comments: He has long dystrophic nails and is unable to cut his toenails. Lymphadenopathy: Cervical: No cervical adenopathy. Neurological: Mental Status: He is alert. Mental status is at baseline. Psychiatric: Behavior: Behavior normal. Office Visit on 11/10/2024 Component Date Value Glucose Blood, POC 11/10/2024 230 (A) QC Media Lot # 11/10/2024 [id number] Lot# Expiration Date 11/10/2024 1,012,025 Hemoglobin A1C 11/10/2024 8.3 (A) QC Media Lot # 11/10/2024 [id number] Lot# Expiration Date 11/10/2024 [id number] Medication Management on 09/29/2024 Component Date Value Hemoglobin A1C 09/29/2024 8.1 (A) QC Media Lot # 09/29/2024 [id number] Lot# Expiration Date 09/29/2024 [id number] Problem List Items Addressed This Visit Type 2 diabetes mellitus with both eyes affected by mild nonproliferative retinopathy without macular edema, with long-term current use of insulin ([facility]) - Primary Type 2 diabetes mellitus with hyperglycemia, with long-term current use of insulin ([facility]) Diabetes is controlled. -Followed by [facility]agment Program with our PharmDVÍCTOR. -Has a continuous glucose monitor. Lab Results Component Value Date HGBA1C 8.3 (A) 11/10/2024 HGBA1C 8.1 (A) 09/29/2024 HGBA1C 8.1 (A) 06/25/2024 Lab Results Component Value Date CREATININE 0.84 01/07/2024 EGFR >60 01/07/2024 MICROALBCREU 69.3 (H) 01/07/2024 LDLCHOLCAL 53 01/07/2024 -Christian/Arb: linsiopril 10mg -Statin therapy: atorvastatin 80mg -Diabetic eye exam: eye exam done 02/2023 -Diabetic foot exam: Done 11/10/24, referred to podiatry -Continue lifestyle modifications -Continue current medications -Empagliflozin 25mg daily. -Trulicity 1.5mg once weekly -Metformin 1000mg BID Saw CDTM 09/29/24 Plan: -Increased trulicity to 3mg once weekly Relevant Orders POCT Glucose (Completed) POCT HGB A1C (Completed) Referral to Podiatry Albumin, Random Urine W/Creatinine Hepatic Function Panel Lipid Panel, Standard Basic Metabolic Panel Methadone dependence ([facility]) -followed at [facility] Dystrophic nail - referred to podiatry 11/10/24 Relevant Orders Referral to Podiatry Ulcer of left great toe due to diabetes mellitus ([facility]) See photos from 03/05/24. 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 -referred to podiatry again today 11/10/24 Overweight Discussed weight, diet, exercise with patient in relation to health conditions. Used motivational interviewing to illicit change talk and established initial goals with patient. Dietary counseling Dietary Recommendations: Fruits, vegetables, whole grains, protein foods, and fat-free or low-fat dairy products are healthychoices. Eat different types of protein foods in your diet. This can include seafood, lean meats, poultry, beans, peas, lentils, nuts, seeds, soy products, and eggs. Limit foods and beverages higher in added sugars, saturated fat, and sodium. Exercise counseling Exercise Recommendations: At least 150 minutes of moderate-intensity physical activity per week, or an equivalent combinationof moderate- and vigorous-intensity activity. Tobacco dependence syndrome -Cigg/day: 5 cig a day -Age started: 17 -Total years smokin -Pack year history: 62 Encouraged smoking cessation resources such as pharmacomtherapy, [facility] smoking cessation group, and [facility] pharmacy smoking cessation clinic -[facility]: 03/25/2021, benign, referred again 03/05/24, Has not heard from Dept. Was given the number to call 06/25/24, given number again to call 11/10/24 -PFTS 02/04/2021 unremarkable Follow up in about 6 months (around 05/13/2025) for physical. I, Franchesca Garcia, am serving as a scribe to document services personally performed by Dr. Conway, based on the patient's response to questions by provider and providers statements to me. documented in this encounter Miscellaneous Notes * Assessment & Plan Note - Franchesca Garcia - 11/10/2024 3:35 PM EDTAssociated Problem(s): Tobacco dependence syndrome -Cigg/day: 5 cig a day -Age started: 17 -Total years smokin -Pack year history: 62 Encouraged smoking cessation resources such as pharmacomtherapy, [facility] smoking cessation group, and [facility] pharmacy smoking cessation clinic -[facility]: 03/25/2021, benign, referred again 03/05/24, Has not heard from Dept. Was given the number to call 06/25/24, given number again to call 11/10/24 -PFTS 02/04/2021 unremarkable * Assessment & Plan Note - Franchesca Garcia - 11/10/2024 3:34 PM EDTAssociated Problem(s): Dystrophic nail - referred to podiatry 11/10/24 * Assessment & Plan Note - Franchesca Garcia - 11/10/2024 3:33 PM EDTAssociated Problem(s): Dietary counseling Dietary Recommendations: Fruits, vegetables, whole grains, protein foods, and fat-free or low-fat dairy products are healthychoices. Eat different types of protein foods in your diet. This can include seafood, lean meats, poultry, beans, peas, lentils, nuts, seeds, soy products, and eggs. Limit foods and beverages higher in added sugars, saturated fat, and sodium. * Assessment & Plan Note - Franchesca Garcia - 11/10/2024 3:33 PM EDTAssociated Problem(s): Exercise counseling Exercise Recommendations: At least 150 minutes of moderate-intensity physical activity per week, or an equivalent combinationof moderate- and vigorous-intensity activity. * Assessment & Plan Note - Franchesca Garcia - 11/10/2024 3:33 PM EDTAssociated Problem(s): Methadone dependence (CMS/HCC) -followed at [facility] * Assessment & Plan Note - Franchesca Garcia - 11/10/2024 3:33 PM EDTAssociated Problem(s): Overweight Discussed weight, diet, exercise with patient in relation to health conditions. Used motivational interviewing to illicit change talk and established initial goals with patient. * Assessment & Plan Note - Franchesca Garcia - 11/10/2024 3:32 PM EDTAssociated Problem(s): Type 2 diabetes mellitus with hyperglycemia, with long-term current use of insulin ([facility]) Diabetes is controlled. -Followed by [facility] Program with our PharmDVÍCTOR. -Has a continuous glucose monitor. Lab Results Component Value Date HGBA1C 8.3 (A) 11/10/2024 HGBA1C 8.1 (A) 09/29/2024 HGBA1C 8.1 (A) 06/25/2024 Lab Results Component Value Date CREATININE 0.84 01/07/2024 EGFR >60 01/07/2024 MICROALBCREU 69.3 (H) 01/07/2024 LDLCHOLCAL 53 01/07/2024 -Christian/Arb: linsiopril 10mg -Statin therapy: atorvastatin 80mg -Diabetic eye exam: eye exam done 02/2023 -Diabetic foot exam: Done 11/10/24, referred to podiatry -Continue lifestyle modifications -Continue current medications -Empagliflozin 25mg daily. -Trulicity 1.5mg once weekly -Metformin 1000mg BID Saw CD[facility] 09/29/24 Plan: -Increased trulicity to 3mg once weekly * Assessment & Plan Note - Franchesca Garcia - 11/10/2024 3:32 PM EDTAssociated Problem(s): Ulcer of left great toe due to diabetes mellitus ([facility]) See photos from 03/05/24. 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 -referred to podiatry again today 11/10/24 documented in this encounter Plan of Treatment Upcoming Encounters Date Type Department Care Team (Late st Contact Info) Description 11/14/2024 11:00 AM EDT Medication Management [facility] [address] [place] [address] France Ferguson PharmD [address] [place] [address] 03/02/2025 10:30 AM EDT Office Visit [facility] [address] [place] [address] Vanessa Arias MD [address] [place], [place] [phone] Scheduled Orders Name Type Priority Associated Diagnoses Orde r Schedule Albumin, Random Urine W/Creatinine Lab Routine Type 2 diabetes mellitus with hyperglycemia, with long-term current use of insulin ([facility]) Expected: 11/10/2024 (Approximate), Expires: 11/10/2025 Hepatic Function Panel Lab Routine Type 2 diabetes mellitus with hyperglycemia, with long-term current use of insulin ([facility]) Expected: 11/10/2024 (Approximate), Expires: 11/10/2025 Lipid Panel, Standard Lab Routine Type 2 diabetes mellitus with hyperglycemia, with long-term current use of insulin ([facility]) Expected: 11/10/2024 (Approximate), Expires: 11/10/2025 Basic Metabolic Panel Lab Routine Type 2 diabetes mellitus with hyperglycemia, with long-term current use of insulin ([facility]) Expected: 11/10/2024 (Approximate), Expires: 11/10/2025 Scheduled Referrals Name Type Priority Associated Diagnoses Orde r Schedule Referral to Podiatry Outpatient Referral Routine Type 2 diabetes mellitus with hyperglycemia, with long-term current use of insulin ([facility]) Dystrophic nail Expected: 11/10/2024 (Approximate), Expires: 11/10/2025 documented as of this encounter Goals Goal Patient Goal Type Associated Problems Recent Progress Patient-Stated? Author Blood Pressure < 140/90 Blood Pressure 127/73(2024 11:22 AM EDT) No France Kimble PharmD Record your blood pressure once per day Blood Pressure No France Kimble PharmD Hemoglobin A1c < 7 Result Component 8.3( 11:25 AM EDT) No France Kimble PharmD Quit using tobacco (cigarettes, smokeless, etc) Tobacco Use No France Kimble PharmD documented as of this encounter Procedures Procedure Name Priority Date/Time Associated Diagnosis Comments POCT GLYCATED HEMOGLOBIN, TOTAL Routine 11/10/2024 11:25 AM EDT Type 2 diabetes mellitus with hyperglycemia, with long-term current use of insulin ([facility]) POCT GLUCOSE Routine 11/10/2024 11:23 AM EDT Type 2 diabetes mellitus with hyperglycemia, with long-term current use of insulin ([facility]) documented in this encounter Results * (ABNORMAL) POCT HGB A1C (11/10/2024 11:25 AM EDT) Hemoglobin A1C 8.3(A) 4.0 - 6.0 % QC Media Lot # [id number] Lot# Expiration Date 718,027 Blood 11/10/2024 11:2 5 AM EDT us Vanessa Arias MD POINT OF CARE TEST ENTER/E DIT ORDERABLES Final Result * (ABNORMAL) POCT Glucose (11/10/2024 11:23 AM EDT) Glucose Blood, POC 230(A) 60 - 200 mg/dL Comment:Fasting QC Media Lot # [id number] Lot# Expiration Date ,025 Blood Capillary blood specimen / Unknown 11/10/2024 11:23 AM EDT us Vanessa Arias MD POINT OF CARE TEST ENTER/E DIT ORDERABLES Final Result documented in this encounter Visit Diagnoses Diagnosis Type 2 diabetes mellitus with both eyes affected by mild nonproliferative retinopathy without macular edema, with long-term current use of insulin ([facility])- Primary Type 2 diabetes mellitus with hyperglycemia, with long-term current use of insulin ([facility]) Methadone dependence ([facility]) Opioid type dependence, unspecified abuse Dystrophic nail Other specified disease of nail Ulcer of left great toe due to diabetes mellitus ([facility]) Overweight Dietary counseling Dietary surveillance and counseling Exercise counseling Tobacco dependence syndrome Tobacco use disorder documented in this encounter Additional Health Concerns Assessment Noted Time PHQ-9 Depression Total Score: 0 03/05/20 2:45 PM EDT documented as of this encounter Care Teams Bakery Worker Conveyor Line Relationship Specialty Start Date End Date Vanessa Arias MD [address] [place] [address] PCP - General Family Medicine 07/09/18 France Ferguson, UdayD [address] [place] [address] Pharmacist Internal Medicine 11/30/22 Eva Mendez, AZAR [address] [place] [address] Event Planner Family Medicine 08/14/23 Deloris Crowe OD [address] [place] [address] Optometry 06/20/[address] MD [address] [place] [address] General Surgery 06/20/24 documented as of this encounter
--- OUTSIDE RECORDS SUMMARY | 2024-11-12 11:13 | XMS_ITS | Encounter Summary ---
Author Organization [employer] Address [address] [facility] [address]t [place] [address] Care Team Providers Care Seed Tester Name Role Phone Vanessa Arias MD Primary Care Provider [phone] France Ferguson PharmD Unavailable Eva Mendez RN Unavailable [phone] Deloris Crowe OD Unavailable Ashok Bo MD Unavailable [phone] Reason for Visit * Reason Comments Med Refill Encounter Details Date Type Department Care Team (Late st Contact Info) Description 11/06/2024 Refill [facility] [address] [place], [place] [phone] France Ferguson, PharmD [address] [place] [address] Type 2 diabetes mellitus with hyperglycemia, with long-term current use of insulin ([facility]); Cardiac risk counseling; Dyslipidemia; Primary hypertension Social History Tobacco Use Types Packs/Day Years [...] your housing situation today? I have butch sing 02/15/[address] you li [...] AM EDT documented as of this encounter Plan of Treatment Upcoming Encounters Date Type Department Care Team (Late st Contact Info) Description 11/14/2024 11:00 AM EDT Medication Management [facility] [address] [place] [phone] France Ferguson, PharmD [address] [place] [address] 03/02/2025 10:30 AM EDT Office Visit [facility] [address] [place] [address] Vanessa Arias MD [address] [place] [address] documented as of this encounter Goals Goal [...] documented as of this encounter Visit Diagnoses Diagnosis Type 2 diabetes mellitus with hyperglycemia, with long-term current use of insulin ([facility]) Cardiac risk counseling Dyslipidemia Other and unspecified hyperlipidemia Primary hypertension Unspecified essential hypertension documented in this encounter Additional Health Concerns Assessment Noted Time PHQ-9 Depression Total Score: 0 03/05/20 24 2:45 PM EDT documented as of this encounter Care Teams Seed Tester Relationship Specialty Start Date End Date Vanessa Arias MD [address] [place] [address] PCP - General Family Medicine 07/09/18 France Ferguson PharmD [address] [place] [address] Pharmacist Internal Medicine 11/30/22 Eva Mendez, AZAR [address] [place] [address] Carpenters Family Medicine 08/14/23 Deloris Crowe OD [address] [place] [address] Optometry 06/20/24 Ashok Bo MD [address] [place] [address] [address]rd [place] [address] General Surgery 06/20/24 documented as of this encounter
--- OUTSIDE RECORDS SUMMARY | 2024-11-12 11:13 | XMS_ITS | Encounter Summary ---
Author Organization [employer] Address [address] [facility] [address]t [place] [address] Care Team Providers Care Psychologist Social Name Role Phone Vanessa Arias MD Primary Care Provider + [phone] France Ferguson PharmD Unavailable [phone] Eva Mendez RN Unavailable [phone] Deloris Crowe OD Unavailable [phone] Ashok Bo MD Unavailable [phone] Encounter Details Date Type Department Care Team (Latest Contact Info) Description 11/11/2024 Travel Social History Tobacco Use Types Packs/Day Years [...] Description 11/14/2024 11:00 AM EDT Medication Management [facility] [address] [place] [phone] France Ferguson, PharmD [address] [place] [address] 03/02/2025 10:30 AM EDT Office Visit [facility] [address] [place] [phone] Vanessa Arias MD [address] [place] [phone] documented as of this encounter Goals Goal Patient Goal Type Associated Problems Recent Progress Patient-Stated? Author Blood Pressure < 140/90 Blood Pressure 127/73(2024 11:22 AM EDT) No France Kimble, PharmD Record your blood pressure once per day Blood Pressure No Debora Kimblesa, PharmD Hemoglobin A1c < 7 Result Component 8.3( 11:25 AM EDT) No Wiliams-Debora Thompsonsa, PharmD Quit using tobacco (cigarettes, smokeless, etc) Tobacco Use No France Kimble, PharmD documented as of this encounter Visit Diagnoses Not on filedocumented in this encounter Additional Health Concerns Assessment Noted Time PHQ-9 Depression Total Score: 0 03/05/20 24 2:45 PM EDT documented as of this encounter Care Teams Psychologist Social Relationship Specialty Start Date End Date Vanessa Arias MD [address] [place] [address] PCP - General Family Medicine 07/09/18 France Ferguson, PharmD [address] [place] [address] Pharmacist Internal Medicine 11/30/22 Eva Mendez, AZAR [address] [place] [address] Heater Operator Helper Family Medicine 08/14/23 Deloris Crowe OD [address] [place] [address] Optometry 06/20/24 Ashok Bo MD [address] [place] [address] 3rd [place] [address] General Surgery 06/20/24 documented as of this encounter
--- OUTSIDE RECORDS SUMMARY | 2024-11-12 11:13 | XMS_ITS | Encounter Summary ---
Author Organization [employer] Address [address] [facility] 7t [place] [address] Care Team Providers Care Creative Intern Name Role Phone Vanessa Arias MD Primary Care Provider [phone] France Ferguson PharmD Unavailable Eva Mendez RN Unavailable [phone] Deloris Crowe OD Unavailable Ashok Bo MD Unavailable Reason for Visit * Reason Comments Med Refill Encounter Details Date Type Department Care Team (Late st Contact Info) Description 05/30/2024 Refill [facility] [address] [place], [place] [phone] France Ferguson, PharmD [address] [place] [address] Social History Tobacco Use Types Packs/Day Years [...] before you got money to buy more: Often true 02/15/2024 Within the past 12 months,th e food you bought just didn't last and you didn't have enough money to get more: Often true 03/2024 Transportation Answer Date Recorded In the past 12 months, has l ack of transportation kept you from medical appts, meetings, work or from getting things needed for daily living? Yes, it has kept me from medical appointments or getting medications. 02/15/2024 Utilities Answer Date Recorded In the past 12 months, has t he electric, gas, oil or water company threatened to shut off services in your home? No 02/15/2024 Depression Answer Date Recorded Patient Health Questionnaire-2 Score 0 03/05/2024 Internet Access Answer Date Recorded Internet Access Q1 Yes 03/10/2024 Internet Access Q2 Not on file 03/10/2024 Sex and Gender Information Value Date Recorded Sex Assigned at Male 05/08/2022 10:16 AM EDT Legal Sex Male 10:16 AM EDT Gender Identity Male 05/08/2022 10:16 AM EDT Sexual Orientation Straight 05/08/2022 10 :16 AM EDT documented as of this encounter Plan of Treatment Upcoming Encounters Date Type Department Care Team (Late st Contact Info) Description 11/14/2024 11:00 AM EDT Medication Management [facility] [address] [place] [phone] France Ferguson, PharmD [address] [place] [phone] 03/02/2025 10:30 AM EDT Office Visit [facility] [address] [place] [phone] Vanessa Arias MD [address] [place] [phone] documented as of this encounter Goals Goal Patient Goal Type Associated Problems Recent Progress Patient-Stated? Author Blood Pressure < 140/90 Blood Pressure 127/73(2024 11:22 AM EDT) No France Kimble, PharmD Record your blood pressure once per day Blood Pressure No France Kimble PharmD Hemoglobin A1c < 7 Result Component 8.3( 11:25 AM EDT) No Mark-France Thompson, PharmD Quit using tobacco (cigarettes, smokeless, etc) Tobacco Use No France Kimble PharmD documented as of this encounter Visit Diagnoses Not on filedocumented in this encounter Additional Health Concerns Assessment Noted Time PHQ-9 Depression Total Score: 0 03/05/20 2:45 PM EDT documented as of this encounter Care Teams Creative Intern Relationship Specialty Start Date End Date Vanessa Arias MD [address] [place] [address] PCP - General Family Medicine 07/09/18 France Ferguson PharmD [address] [place] [phone] Pharmacist Internal Medicine 11/30/22 Eva Mendez, AZAR [address] [place] [address] International Account Representative Family Medicine 08/14/23 Deloris Crowe OD [address] [place] [phone] Optometry 06/20/24 Ashok Bo MD [address] [place] [address] Drive 3rd [place] [address] General Surgery 06/20/24 documented as of this encounter
--- OUTSIDE RECORDS SUMMARY | 2024-11-12 11:13 | XMS_ITS | Encounter Summary ---
Author Organization [employer] Address [address] [facility] 7t [place] [address] Care Team Providers Care Operator Control Room Name Role Phone Vanessa Arias MD Primary Care Provider [phone] France Ferguson PharmD Unavailable Eva Mendez RN Unavailable [phone] Deloris Crowe OD Unavailable Ashok Bo MD Unavailable Reason for Visit * Reason Comments Med Refill Encounter Details Date Type Department Care Team (Late st Contact Info) Description 07/31/2023 Refill [facility] [address] [place], [place] [phone] Vanessa Arias MD [address] [place], [place] [phone] Social History Tobacco Use Types Packs/Day Years Used Date Smoking Tobacco: Former Cigarettes 0.5 50 1 09/05/1972 - 07/05/2023 Passive Smoke Exposure: Past Smokeless Tobacco: Never Alcohol Use Standard Drinks/Week Comments Never 0 (1 standard drink = 0.6 oz pur e alcohol) Depression Answer Date Recorded Patient Health Questionnaire-9 Score 0 01/05/2023 Housing Stability Answer Date Recorded What is your housing situation today? I have butch mello 04/24/[address] you li ve. Do you have problems with any of the following? None of the above 04/24/2023 Food Insecurity Answer Date Recorded Within the past 12 months, y ou worried that your food would run out before you got money to buy more: Sometimes True 2022 Within the past 12 months,th e food you bought just didn't last and you didn't have enough money to get more: Sometimes True 04/24/2023 Transportation Answer Date Recorded In the past 12 months, has l ack of transportation kept you from medical appts, meetings, work or from getting things needed for daily living? No 04/24/2023 Utilities Answer Date Recorded In the past 12 months, has t he electric, gas, oil or water company threatened to shut off services in your home? No 04/24/2023 Depression Answer Date Recorded Patient Health Questionnaire-2 [...] Description 11/14/2024 11:00 AM EDT Medication Management [facility] [address] [place] [phone] France Ferguson PharmD [address] [place] [phone] 03/02/2025 10:30 AM EDT Office Visit [facility] [address] [place] [phone] Vanessa Arias MD [address] [place] [phone] documented as of this encounter Goals Goal [...] documented as of this encounter Care Teams Operator Control Room Relationship Specialty Start Date End Date Vanessa Arias MD [address] [place] [address] PCP - General Family Medicine 07/09/18 France Ferguson, UdayD [address] [place] [address] Pharmacist Internal Medicine 11/30/22 Eva Mendez, AZAR [address] [place] [phone] Directory Assistance Operator Family Medicine 08/14/23 Deloris Crowe OD [address] [place] [phone] Optometry 06/20/24 Ashok Bo MD [address]rd [place] [address] General Surgery 06/20/24 documented as of this encounter
--- OUTSIDE RECORDS SUMMARY | 2024-11-12 11:13 | XMS_ITS | Encounter Summary ---
Author Organization [employer] Address [address] [place] [address] 7t [place] [address] Care Team Providers Care [employer] Name Role Phone Vanessa Arias MD Primary Care Provider France Ferguson PharmD Unavailable [phone] Eva Mendez RN Unavailable [phone] Deloris Crowe OD Unavailable Ashok Bo MD Unavailable [phone] Reason for Referral * Consultation (Routine) - Closed Specialty Diagnoses / Procedures Referred By Contac t Referred To Contact Pharmacy Diagnoses Type 2 diabetes mellitus with hyperglycemia, with long-term current use of insulin ([facility]) Vanessa Arias MD [address] [place] [address] Phone: tel: fax: [facility] Pharmacotherapy On license of [facility] [place] [address] Phone: tel: fax: Referral ID Status Reason Start Date Expiration Date V isits Requested Visits Authorized [id number] Closed Continuity of Care 10/20/2022 10/20/2023 1 1 Encounter Details Date Type Department Care Team (Late st Contact Info) Description 10/20/2022 Orders Only [facility] [address] [place] [address] Vanessa Arias MD [address] [place] [address] Type 2 diabetes mellitus with hyperglycemia, with long-term current use of insulin (CMS/HCC) (Primary Dx) Social History Tobacco Use Types Packs/Day Years Used Date Smoking Tobacco: Never Assessed Sex and Gender Information Value Date Recorded Sex Assigned at Male 05/08/2022 10:16 AM EDT Legal Sex Male 10:16 AM EDT Gender Identity Male 05/08/2022 10:16 AM EDT Sexual Orientation Straight 05/08/2022 10 :16 AM EDT COVID-19 Exposure Response Date Recorded In the last 10 days, have yo u been in contact with someone who was confirmed or suspected to have Coronavirus/COVID-19? No / Unsure 10/10/2022 2:42 PM EDT documented as of this encounter Plan of Treatment Upcoming Encounters Date Type Department Care Team (Late st Contact Info) Description 11/14/2024 11:00 AM EDT Medication Management [facility] [address] [place] [phone] France Ferguson PharmD [address] [place] [phone] 03/02/2025 10:30 AM EDT Office Visit [facility] [address] [place] [phone] Vanessa Arias MD [address] [place] [phone] Scheduled Referrals Name Type Priority Associated Diagnoses Order Schedule Referral to Pharmacist-led Chronic Disease Management Program Outpatient Referral Routine Type 2 diabetes mellitus with hyperglycemia, with long-term current use of insulin (CMS/HCC) Ordered: 10/20/2022 documented as of this encounter Visit Diagnoses Diagnosis Type 2 diabetes mellitus with hyperglycemia, with long-term current use of insulin (CMS/HCC)- Primary documented in this encounter Care Teams [employer] Relationship Specialty Start Date End Date Vanessa Arias MD [address] [place] [phone] PCP - General Family Medicine 1/1/19 France Ferguson, Eduardo [address] [place] [address] Pharmacist Internal Medicine 11/30/22 Eva Mendez, AZAR [address] [place] [address] Bankruptcy Law Specialist Family Medicine 08/14/23 Deloris Crowe OD [address] [place] [phone] Optometry 06/20/24 Ashok Bo MD [address] [place] [address] 3rd [place] [address] General Surgery 06/20/24 documented as of this encounter
--- OUTSIDE RECORDS SUMMARY | 2024-11-12 11:13 | XMS_ITS | Clinical Summary ---
Author Organization [employer] Address [address] [place] [address] Care Team Providers Care Climatology Teacher Name Role Phone Vanessa Arias MD Primary Care Provider France Ferguson PharmD Unavailable Eva Mendez RN Unavailable [phone] Deloris Crowe OD Unavailable Ashok Bo MD Unavailable [phone] Allergies No known active allergies Medications * This document contains information received from the source organization and may not represent a complete record from that organization. naloxone (Narcan) 4 mg/0.1 mL nasal sprayIndication s:Methadone dependence (CMS/FORMERLY [facility]) Administer 0.1 mL into affected nostril(s) if needed. 021 Active Sennosides 8.6 MG capsuleIndicati ons:Methadone dependence (CMS/FORMERLY [facility]) Take 8.6 mg by mouth if needed at bedtime for constipation. 021 Active methadone (Dolophine) 10 MG tabletIndicatio ns:Methadone dependence (CMS/FORMERLY [facility]) 108mg daily Active glucose blood (FreeStyle Precision Ed Test) test stripIndication s:Type 2 diabetes mellitus with hyperglycemia, with long-term current use of insulin ([facility]) Test blood sugar every 8 hours 100 each 11 024 2024 Active empagliflozin (Jardiance) 25 MGIndications:T ype 2 diabetes mellitus with hyperglycemia, with long-term current use of insulin ([facility]) Take 1 tablet (25 mg) by mouth Once per day. 90 tablet 6 Active Lancets (OneTouch Delica Plus [id number]) miscIndications :Type 2 diabetes mellitus with hyperglycemia, with long-term current use of insulin ([facility]) Use bid prn 100 each 5 Active metFORMIN (Glucophage) 1000 MG tabletIndicatio ns:Type 2 diabetes mellitus with hyperglycemia, with long-term current use of insulin ([facility]) TAKE 1 TABLET BY MOUTH TWICE DAILY IN THE MORNING AND IN THE EVENING 180 tablet 3 Active diphenhydrAMINE (BENADryl) 25 MG tabletIndicatio ns:Rash Take 1 tablet (25 mg) by mouth every 6 (six) hours if needed for itching or allergies for up to 7 days. 28 tablet Active EPINEPHrine (Epipen) 0.3 MG/0.3ML injection syringeIndicati ons:Rash Inject 0.3 mL (0.3 mg) as directed 1 (one) time if needed for anaphylaxis. Inject into upper leg. Call 911 after use. 2 each 1 024 2024 Active Alcohol Swabs (Alcohol Pads) 70 % padsIndications :Type 2 diabetes mellitus with hyperglycemia, with long-term current use of insulin ([facility]) USE DIRECTED WITH INSULIN USE FOUR TIMES DAILY 100 each 11 Active triamcinolone (Kenalog) 0.1 % creamIndication s:Rash Apply topically if needed in the morning and at bedtime for rash (itching). 80 g Active nicotine polacrilex (Nicotine Mini) 2 MG lozengeIndicati ons:Tobacco dependence syndrome 1 lozenge PO every 1-2 hours PRN x 6 weeks. Reduce to 1 lozenge PO every 2-4 hours PRN in weeks 7-9, 1 lozenge PO every 4-8 hours PRN in weeks 10 to 12, then stop. Max 5 lozenges/6 hours or 20 lozenges/day 100 lozenge Active Continuous Glucose Arboriculture Teacher (FreeStyle Jose Guadalupe 2 [place]) deviceIndicatio ns:Type 2 diabetes mellitus with hyperglycemia, with long-term current use of insulin ([facility]) Use as directed 1 each 024 Active Pentips Generic Pen [place] 32G X 4 MM miscIndications :Type 2 diabetes mellitus with hyperglycemia, with long-term current use of insulin ([facility]) USE DIRECTED FOUR TIMES DAILY 100 each 11 025 Active hydroCHLOROthia zide 12.5 MG tabletIndicatio ns:Primary hypertension TAKE 1 TABLET BY MOUTH EVERY MORNING (FOR BLOOD PRESSURE) 90 tablet 3 025 Active glucose (Glutose) 40 % gel oral gelIndications: Type 2 diabetes mellitus with hyperglycemia, with long-term current use of insulin ([facility]) Take 15 g by mouth if needed for low blood sugar. 45 g 11 025 Active Dulaglutide (Trulicity) 3 MG/0.5ML solution auto-injectorIn dications:Type 2 diabetes mellitus with hyperglycemia, with long-term current use of insulin ([facility]) Inject 3 mg under the skin every 7 (seven) days. 2 mL 3 025 Active lisinopril (Prinivil) 20 MG tabletIndicatio ns:Primary hypertension Take 1 tablet (20 mg) by mouth Once per day. 90 tablet 025 Active Melatonin 3 MG capsule Take 1 capsule by mouth once daily at bedtime as needed 90 capsule 025 Active insulin glargine (Lantus SoloStar) 100 UNIT/ML penIndications: Type 2 diabetes mellitus with hyperglycemia, with long-term current use of insulin ([facility]) INJECT 60 UNITS SUBCUTANEOUSLY ONCE DAILY 025 Active Continuous Glucose Sensor (FreeStyle Jose Guadalupe 2 Sensor) miscIndications :Type 2 diabetes mellitus with hyperglycemia, with long-term current use of insulin ([facility]) USE DIRECTED. CHANGE EVERY 14 DAYS 2 each 025 Active insulin lispro (HumaLOG) 100 UNIT/ML injectionIndica tions:Type 2 diabetes mellitus with hyperglycemia, with long-term current use of insulin ([facility]) INJECT 18 UNITS SUBCUTANEOUSLY BEFORE BREAKFAST, 20 UNITS BEFORE LUNCH, AND 22 UNITS BEFORE SUPPER DIRECTED 15 mL 3 025 Active atorvastatin (Lipitor) 80 MG tabletIndicatio ns:Type 2 diabetes mellitus with hyperglycemia, with long-term current use of insulin (CMS/[facility]),Cardi ac risk counseling,Dysl ipidemia TAKE 1 TABLET BY MOUTH AT BEDTIME 90 tablet 025 Active atorvastatin (Lipitor) 80 MG tabletIndicatio ns:Type 2 diabetes mellitus with hyperglycemia, with long-term current use of insulin (CMS/HCC),Cardi ac risk counseling,Dysl ipidemia Take 1 tablet (80 mg) by mouth at bedtime. 90 tablet 3 024 2024 Discontinued insulin lispro (HumaLOG) 100 UNIT/ML injectionIndica tions:Type 2 diabetes mellitus with hyperglycemia, with long-term current use of insulin ([facility]) INJECT 18 UNITS SUBCUTANEOUSLY BEFORE BREAKFAST, 20 UNITS BEFORE LUNCH, AND 22 UNITS BEFORE SUPPER DIRECTED 15 mL 3 025 2024 Discontinued Active Problems Patient Care Coordination No te Formatting of this note migh t be different from the original. [facility] DM and [facility] HTN clinic with France Ferguson, Uday[facility], [facility] Problem Noted Date Diagnosed Date Overweight 11/10/2024 Overview (11/10/2024): Discussed weight, diet, exercise with patient in relation to health conditions. Used motivational interviewing to illicit change talk and established initial goals with patient. Assessment & Plan (11/10/2024 3:33 PM EDT): Discussed weight, diet, exercise with patient in relation to health conditions. Used motivational interviewing to illicit change talk and established initial goals with patient. Dietary counseling 11/10/2024 Assessment & Plan (11/10/2024 3:33 PM EDT): Dietary Recommendations: Fruits, vegetables, whole grains, protein foods, and fat-free or low-fat dairy products are healthy choices. Eat different types of protein foods in your diet. This can include seafood, lean meats, poultry, beans, peas, lentils, nuts, seeds, soy products, and eggs. Limit foods and beverages higher in added sugars, saturated fat, and sodium. Exercise counseling 11/10/2024 Assessment & Plan (11/10/2024 3:33 PM EDT): Exercise Recommendations: At least 150 minutes of moderate-intensity physical activity per week, or an equivalent combination of moderate- and vigorous-intensity activity. Dystrophic nail 11/10/2024 Overview (11/10/2024): - referred to podiatry 11/10/24 Assessment & Plan (11/10/2024 3:34 PM EDT): - referred to podiatry 11/10/24 Ulcer of left great toe due to diabetes mellitus 03/05/2024 Overview (11/10/2024): See photos from 03/05/24. Use to follow with Podiatry, glass artist . -referred to podiatry again today 11/10/24 Assessment & Plan (11/10/2024 3:32 PM EDT): See photos from 03/05/24. Use to follow with Podiatry, glass artist . -referred to podiatry again today 11/10/24 Assessment & Plan (03/05/2024 11:11 AM EDT): Follows with Podiary, has appt. scheduled. See photos in chart. Type 2 diabetes mellitus wit h both eyes affected by mild nonproliferative retinopathy without macular edema, with long-term current use of insulin 03/04/2024 Overview (03/04/2024): -followed by optho Assessment & Plan (03/05/2024 11:03 AM EDT): -followed by optho Complete edentulism 01/25/2023 Other specified health status 01/05/2023 Overview (09/18/2024): -next physical exam due after 03/05/2025 -eye care facilitated [facility], apt 04/2024 -dental home is [facility], Pt will call for appointment for dentures -health care proxy given and filed 03/05/24 Assessment & Plan (03/05/2024 12:00 PM EDT): -next physical exam due after -eye care facilitated [facility], apt 04/2024 -dental home is [facility], Pt will call for appointment for dentures -health care proxy given and filed 03/05/24 Assessment & Plan (07/04/2023 9:20 AM EST): -next physical exam due after 01/06/2024. -eye care facilitated by [facility], encouraged PT to make appointment 01/05/2023. -dental home is [facility], Pt will call for appointment for dentures Assessment & Plan (01/05/2023 10:48 AM EDT): -next physical exam due after 01/06/2024 -eye care facilitated by [facility], encouraged PT to make appointment 01/05/2023. -dental home is [facility], Pt will call for appointment for dentures. Cardiac risk counseling 05/27/2022 Overview (11/05/2023): Calculated 11/02/23: high risk The 10-year ASCVD risk score (Crystal DUMONT, et al., 2019) is: 34% Values used to calculate the score: Age: 72 years Sex: Male Is Non- : No Diabetic: Yes Tobacco smoker: No Systolic Blood Pressure: 118 mmHg Is BP treated: Yes HDL Cholesterol: 39 mg/dL Total Cholesterol: 180 mg/dL Lab Results Component Value Date LDLCHOL 106 (H) 11/30/2022 LDLCHOL 79 05/21/2020 LDLCHOL 79 05/21/2020 LDLCHOL 79 05/21/2020 -continue atorvastatin 80mg -encourage strict tobacco cessation Assessment & Plan (05/27/2022 9:20 AM EST): 10 year risk of ASCVD 51.4 % 04/2022. Lifestyle modification discussed. Type 2 diabetes mellitus wit h hyperglycemia, with long-term current use of insulin 09/15/2021 Overview (11/10/2024): Diabetes is controlled. -Followed by [facility] [...] Plan: -Increased trulicity to 3mg once weekly Assessment & Plan (11/10/2024 3:32 PM EDT): Diabetes is controlled. -Followed by [facility] with our PharmVÍCTOR Cottrell. -Has a continuous glucose monitor. Lab Results [...] Plan: -Increased trulicity to 3mg once weekly Assessment & Plan (03/05/2024 2:44 PM EDT): Diabetes is controlled. A1C is slightly worse compared to 10/26/23 -Followed by CDTM scheduled with RN for GCM download -Has a continuous glucose monitor. Lab Results Component Value Date HGBA1C 8.4 (A) 03/05/2024 HGBA1C 7.0 (A) 10/26/2023 HGBA1C 8.5 (A) 07/04/2023 Lab Results Component Value Date CREATININE 0.84 01/07/2024 EGFR >60 01/07/2024 MICROALBCREU 69.3 (H) 01/07/2024 LDLCHOLCAL 53 01/07/2024 -Christian/Arb: linsiopril 10mg -Statin therapy: atorvastatin 80mg -Diabetic eye exam: eye exam done 02/2023 -Diabetic foot exam: Done 03/05/24 -Continue lifestyle modifications -Continue current medications -Empagliflozin 25mg daily. -Lantus increased to 56 units daily on 12/18/2022. -Lispro increased to 16 before breakfest, 18 before lunch and 20 before dinner on 12/18/2022. -Trulicity 0.75 -Metformin 1000mg BID Assessment & Plan (07/04/2023 1:23 PM EST): Diabetes is controlled. -Followed by CDTM scheduled with RN for GCM download -Has a continuous glucose monitor. Lab Results Component Value Date HGBA1C 8.5 (A) 07/04/2023 HGBA1C 9.8 (A) 03/27/2023 HGBA1C 10.6 (H) 11/30/2022 - Lab Results Component Value Date MICROALBUR 34.1 05/21/2020 CREATININE 0.93 11/30/2022 -Changes: none -Christian/Arb: linsiopril 10mg -Statin therapy: atorvastatin 80mg -Diabetic eye exam: eye exam done 02/2023 -Diabetic foot exam: Done 01/05/2023. -Continue lifestyle modifications -Continue current medications -Empagliflozin 25mg daily. -Lantus increased to 56 units daily on 12/18/2022. -Lispro increased to 16 before breakfest, 18 before lunch and 20 before dinner on 12/18/2022. -Trulicity 0.75 -Metformin 1000mg BID Assessment & Plan (01/05/2023 10:46 AM EDT): Diabetes is controlled. -Followed by CDTM last note 12/18/2022. Follow up 01/17/2023. -Has a continuous glucose monitor. Lab Results Component Value Date HGBA1C 10.6 (H) 11/30/2022 HGBA1C 9.2 (A) 03/06/2022 HGBA1C 10.1 (H) 05/21/2020 HGBA1C 10.1 (H) 05/21/2020 - Lab Results Component Value Date MICROALBUR 34.1 05/21/2020 CREATININE 0.93 11/30/2022 -Changes: none -Christian/Arb: linsiopril 10mg -Statin therapy: atorvastatin 80mg -Diabetic eye exam: Pt will call and make an appointment 12/26/2022. -Diabetic foot exam: Done 01/05/2023. -Continue lifestyle modifications -Continue current medications -Empagliflozin 25mg daily. -Lantus increased to 56 units daily on 12/18/2022. -Lispro increased to 16 before breakfest, 18 before lunch and 20 before dinner on 12/18/2022. -Trulicity 0.75 -Metformin 1000mg BID Assessment & Plan (05/27/2022 10:16 AM EST): No results found for: HGBA1C Tubular adenoma 03/13/2018 Overview (03/04/2024): -Tubular adenoma on colonoscopy 02/2018 -Colonoscopy with Dr. Bo 11/02/23, repeat in 5 years Assessment & Plan (03/05/2024 11:01 AM EDT): -Tubular adenoma on colonoscopy 02/2018 -Colonoscopy with Dr. Bo 11/02/23, repeat in 5 years Assessment & Plan (07/04/2023 11:47 AM EST): On colonoscopy 02/2018 -Seen by Dr. Bo, referral done 01/05/2023. -Pt missed appt, number given to pt for colonoscopy 07/04/2023. Assessment & Plan (01/05/2023 10:42 AM EDT): On colonoscopy 02/2018 -Seen by Dr. Bo, referral done 01/05/2023. Assessment & Plan (05/27/2022 9:18 AM EST): On colonoscopy 02/2018, next due by 02/2023 Hypertension 12/30/2012 Overview (06/25/2024): -Blood pressure is at goal 06/25/24 -Continue lifestyle modifications -Continue current medications -Amlodipine was discontinued 11/2022 due to low BP Assessment & Plan (06/25/2024 9:53 AM EST): -Blood pressure is at goal 06/25/24 -Continue lifestyle modifications -Continue current medications -Amlodipine was discontinued 11/2022 due to low BP Assessment & Plan (03/05/2024 11:11 AM EDT): -Blood pressure is at goal -Continue lifestyle modifications -Continue current medications -Amlodipine was discontinued 11/2022 due to low BP Assessment & Plan (07/04/2023 9:19 AM EST): -Blood pressure is at goal -Continue lifestyle modifications -Continue current medications -Amlodipine was discontinued 11/2022 due to low BP. Assessment & Plan (01/05/2023 10:42 AM EDT): -Blood pressure is at goal -Continue lifestyle modifications -Continue current medications -Amlodipine was discontinued 11/2022 due to low BP. Depressive disorder 06/10/2012 Overview (03/04/2024): -controlled with therapist and psychiatrist -no NILS Assessment & Plan (10/02/2024 1:46 PM EDT): During [facility] Consult Jama[place] presenting with depressed mood, hopelessness, irritable mood, loss of interests/pleasure , sense of isolation/loneliness , isolating, change in appetite or weight reduce appetite, changes in sleep difficulty falling asleep and difficulty staying asleep , psychomotor retardation, difficulty concentrating, indecisiveness; for a period of 18+ mo, for most or all symptoms in the context of feeling lonely after his friend who he used to live with . Pt was referred by [facility] pharmacy department/[place] Team. History of depression per his medical chart. Pt declined assistance for MH needs. Reports having a sense of loneliness that has being there since the passing of his friend three years ago. Pt reports his daughter is closest family member he can rely on and social support. No reports of current MH services per patient's report. clinician will provide additional BE during next medical appointment with PCP, dr Arias, if requested and needed. Pt will reach out if needing to talk with sooner. Assessment & Plan (03/05/2024 11:03 AM EDT): -controlled with therapist and psychiatrist -no NILS Benign prostatic hyperplasia 06/10/2012 Dyslipidemia 06/10/2012 Overview (06/20/2024): Lab Results Component Value Date CHOL 109 01/07/2024 TRIG 86 01/07/2024 TRIG 230 (H) 11/30/2022 HDL 39 (L) 01/07/2024 LDLCHOLCAL 53 01/07/2024 -continue lifestyle modification -atorvastatin 80mg Assessment & Plan (03/05/2024 11:02 AM EDT): Lab Results Component Value Date TRIG 86 01/07/2024 TRIG 230 (H) 11/30/2022 CHOL 109 01/07/2024 LDLCHOLCAL 53 01/07/2024 HDL 39 (L) 01/07/2024 Lab Results Component Value Date CHOLESTEROL 180 11/30/2022 HDLCHOL 39 (L) 11/30/2022 TRIG 86 01/07/2024 TRIG 230 (H) 11/30/2022 LDLCHOL 106 (H) 11/30/2022 CHOLHDLRAT 4.6 11/30/2022 NONHDLCHOL 141 (H) 11/30/2022 -continue lifestyle modifications -atorvastatin 80mg [place]: positive 06/10/2012 Methadone dependence 06/10/2012 Overview (03/04/2024): -followed at [place] Assessment & Plan (11/10/2024 3:33 PM EDT): -followed at [place] Assessment & Plan (03/05/2024 11:02 AM EDT): -followed at [place] Assessment & Plan (07/04/2023 9:19 AM EST): Followed at [place] Assessment & Plan (01/05/2023 9:09 AM EDT): Followed at [place] Assessment & Plan (05/27/2022 9:21 AM EST): Followed at [place] Has Narcan in the home Currently doing well on Methadone 115mg daily Senna prn for constipation Osteoarthritis 06/10/2012 Tobacco dependence syndrome 06/10/2012 Overview (11/10/2024): -Cigg/day: 5 cig a day -Age started: 17 -Total years smokin -Pack year history: 62 Encouraged smoking cessation resources such as pharmacomtherapy, [facility] smoking cessation group, and [facility] pharmacy smoking cessation clinic -[facility]: 03/25/2021, benign, referred again 03/05/24, Has not heard from Dept. Was given the number to call 06/25/24, given number again to call 11/10/24 -PFTS 02/04/2021 unremarkable Assessment & Plan (11/10/2024 3:35 PM EDT): -Cigg/day: 5 cig a day -Age started: 17 -Total years smokin -Pack year history: 62 Encouraged smoking cessation resources such as pharmacomtherapy, [facility] smoking cessation group, and [facility] pharmacy smoking cessation clinic -[facility]: 03/25/2021, benign, referred again 03/05/24, Has not heard from Dept. Was given the number to call 06/25/24, given number again to call 11/10/24 -PFTS 02/04/2021 unremarkable Assessment & Plan (06/25/2024 9:55 AM EST): -Cigg/day: 5 cig a day -Age started: 17 -Total years smokin -Pack year history: 62 Encouraged smoking cessation resources such as pharmacomtherapy, [facility] smoking cessation group, and [facility] pharmacy smoking cessation clinic -[facility]: 03/25/2021, benign, referred again 03/05/24, Has not heard from Dept. Was given the number to call 06/25/24 -PFTS 02/04/2021 unremarkable Assessment & Plan (03/05/2024 11:01 AM EDT): -Cigg/day: 5 cig a day -Age started: 17 -Total years smokin -Pack year history: 62 Encouraged smoking cessation resources such as pharmacomtherapy, [facility] smoking cessation group, and [facility] pharmacy smoking cessation clinic -[facility]: 03/25/2021, benign, referred again 03/05/24 -PFTS 02/04/2021 unremarkable Assessment & Plan (07/04/2023 11:40 AM EST): -Cigg/day: 5 cig a day -Age started: 17 -Total years smokin -Pack year history: 62 Encouraged smoking cessation resources such as pharmacomtherapy, [facility] smoking cessation group, and [facility] pharmacy smoking cessation clinic -[facility]: 03/25/2021, benign -PFTS 02/04/2021 unremarkable Assessment & Plan (01/05/2023 9:09 AM EDT): Lung cancer screening done 03/25/2021, benign PFTS 02/04/2021 unremarkable Assessment & Plan (05/27/2022 9:17 AM EST): Smokes 5 cig per day Lung Cancer screening done 03/25/2021 PFTS 02/04/2021 unremarkable Has tried Chantix and nicotine patches Cessation support offered Resolved Problems Problem Noted Date Diagnosed Date Resolved Date History of appendectomy 06/10/201206/08 Encounters * This document contains information received from the source organization and may not represent a complete record from that organization. 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, with long-term current use of insulin (CMS/HCC) (Primary Dx); Type 2 diabetes mellitus with hyperglycemia, with long-term current use of insulin (CMS/HCC); Methadone dependence (CMS/HCC); Dystrophic nail; Ulcer of left great toe due to diabetes mellitus (CMS/HCC); Overweight; Dietary counseling; Exercise counseling; Tobacco dependence syndrome 11/10/2024 Travel 11/06/2024 Refill [facility] [address] [place] [address] France Ferguson PharmD Type 2 diabetes mellitus with hyperglycemia, with long-term current use of insulin (CMS/HCC); Cardiac risk counseling; Dyslipidemia; Primary hypertension 11/05/2024 Telephone [facility] [address] [place] [address] Vanessa Arias MD chart perp 11/01/2024 Refill [facility] [address] [place] [phone] Vanessa Arias MD Type 2 diabetes mellitus with hyperglycemia, with long-term current use of insulin (CMS/HCC) 10/06/2024 Refill [facility] [address] [place] [address] Vanessa Arias MD Type 2 diabetes mellitus with hyperglycemia, with long-term current use of insulin (CMS/HCC) 09/29/2024 Patient Outreach [facility] [address] [place] [phone] Vanessa Arias MD Care Coordination ([facility] outreach for SDOH food needs-referral completed /) 09/29/2024 Refill [facility] [address] [place] [address] France Ferguson PharmD 09/29/2024 Telephone [facility] [address] [place] [phone] France Ferguson, PharmD 09/29/2024 Travel 09/18/2024 Telephone [facility] [address] [place] [phone] Vanessa Arias MD 09/14/2024 Refill [facility] [address] [place] [phone] Vanessa Arias MD Primary hypertension 09/08/2024 Patient Outreach [address] [phone] Vanessa Arias MD Care Coordination ([facility] outreach for SDOH food needs-referral completed /) 09/08/2024 Patient Outreach [address] [phone] Vanessa Arias MD Pre-visit Planning (SDOH Screening positive and Tobacco screening negative) 08/15/2024 Refill [facility] [address] [place] [phone] Vanessa Arias MD Type 2 diabetes mellitus with hyperglycemia, with long-term current use of insulin ([facility]) from Last 3 Months Immunizations Name Administration Dates Next Due Hep A, Adult 03/05/2024,01/05/2023 Hep B, adult 01/05/2023,08/15/2017,08/02/2015 Influenza High-dose Quadriva lent Preservative Free 04/26/2023 Influenza injectable quadriv alent IIV4 with preservative 08/15/2017,04/07/2016 Influenza injectable quadriv alent preservative free 08/02/2015,09/10/2014 Influenza, High Dose Seasona l, Preservative Free 04/14/2024,05/23/2018 Influenza, Split (incl. osvaldo fied surface antigen) 03/24/2013,06/10/2012 MMR 07/23/2003 Moderna Covid-19 Vaccine 12+ 08/16/2021,10/07/19 21,09/08/2020 Moderna Covid-19 Vaccine 6+ Bivalent 10/10/2022 Pfizer Covid-19 Vaccine 12+ 06/25/2024, Pneumococcal Conjugate PCV 20 12/18/2022 Pneumococcal Polysaccharide PPSV23 09/10/2014, RSV Bivalent 10/26/2023 TD (adult), 2 Lf tetanus tox oid, preservative free, adsorbed 11/14/2004 Td (adult), 5 Lf tetanus tox oid, preservative free, adsorbed 04/06/2015 Tdap 06/10/2012 Zoster, Recombinant 03/01/2023,12/18/2022 Zoster, live 09/25/2014 Family History Medical History Relation Name Comments Colon cancer Brother Lung cancer Father Diabetes Mother Diabetes type II Sister Relation Name Status Comments Brother Father Mother Sister Social History Tobacco Use Types Packs/Day Years Used Date Smoking Tobacco: Former Cigarettes 0.5 50 1 09/05/1972 - 07/05/2023 Passive Smoke Exposure: Past Smokeless Tobacco: Never Tobacco Cessation:Counseling Given: Not Answered Alcohol Use Standard Drinks/Week Comments Never 0 (1 standard drink = 0.6 oz pur e alcohol) Depression Answer Date Recorded Patient Health Questionnaire-9 Score 0 03/05/2024 Patient Health Questionnaire-9 Score 0 03/05/2024 Last PHQ-9: Questionnaire Data Not on file 0 03/05/2024 Housing Stability Answer Date Recorded What is your housing situation today? I have butchtrace mello 02/15/[address] you [...] Orientation Straight 05/08/2022 10 :16 AM EDT Last Filed Vital Signs Vital Sign Reading [...] Mass Index 31.17 11/10/2024 11:22 AM EDT Plan of Treatment Upcoming Encounters Date Type Department Care Team (Late st Contact Info) Description 11/14/2024 11:00 AM EDT Medication Management [facility] [address] [place] [phone] France Ferguson, PharmD [address] [place] [phone] 03/02/2025 10:30 AM EDT Office Visit [facility] [address] [place] [phone] Vanessa Arias MD [address] [place] [address] Health Maintenance Due Date Last Done Comments CT Colonography 1952 FIT DNA/Cologuard 1952 FIT 1952 FOBT 1952 Sigmoidoscopy 1952 Lung Cancer Screening 2002 Dental Prophylaxis 01/20/2012 07/21/2011 Dental X-Ray: Bitewings 02/29/2012 02/27/2011 Dental Oral Exam 07/29/2023 01/25/2023, , 02/09/2009 Diabetes: Urine Protein Screening 01/06/2025 01/07/2024, 07/12/2023, 06/22/2021, Additional history exists Lipid Panel 01/06/2025 01/07/2024, 11/07, 06/22/2021, Additional history exists Diabetes: Hemoglobin A1C 02/10/2025 025, 09/29/2024, 06/25/2024, Additional history exists Depression Screening 03/05/2025 03/05/2024, 03/05/20 DTaP/Tdap/Td Vaccines (3 - Td or Tdap) 04/06/2025 04/06/2015, 06/10/2012, 11/14/2004 Eye Exam 05/02/2025 05/02/2024, 04/09, 05/02/2024, Additional history exists Alcohol/Substance Use Screening 06/25/2025 06/25/2024 SDOH Screening 09/08/2025 09/08/2024 Diabetes: Foot Exam 11/10/2025 11/10/2024, 11/10/2024, 11/10/2024, Additional history exists Tobacco Screening 11/10/2025 11/10/2024 Dental X-Ray: Full Mouth 01/26/2026 01/25/2023, 02/07 Colonoscopy 11/01/2028 11/02/2023, 03/01/2018 Colorectal Cancer Screening 11/01/2028 Pneumococcal Vaccine: 50+ Years Completed 12/18/2022, 09/10/2014, 11/14/2004 Hepatitis B Vaccines Completed 01/05/2023, 08/15/2017, 08/02/2015 Zoster Vaccines Completed 03/01/2023, 12/07, 09/25/2014 Hepatitis C Screening Completed 07/12/2023, 024 RSV Patients and Patients Aged 60 years or older Completed 10/26/2023 Hepatitis A Vaccines Aged Out 03/05/2024, 01/06/20 23 No longer eligible based on patient's age to complete this topic Influenza Vaccine Completed 04/14/2024, , 05/23/2018, Additional history exists COVID-19 Vaccine Completed 06/25/2024, , 10/10/2022, Additional history exists HIB Vaccines Aged Out No longer eligi ble based on patient's age to complete this topic HPV Vaccines Aged Out No longer eligi ble based on patient's age to complete this topic IPV Vaccines Aged Out No longer eligi ble based on patient's age to complete this topic Meningococcal Vaccine Aged Out No chapo chi eligible based on patient's age to complete this topic RSV under 20 months Aged Out No longe r eligible based on patient's age to complete this topic Rotavirus Vaccines Aged Out No longer eligible based on patient's age to complete this topic Goals Goal Patient Goal Type Associated Problems Recent Progress Patient-Stated? Author Blood Pressure < 140/90 Blood Pressure 127/73(2024 11:22 AM EDT) No Mark-France Thompson PharmD Record your blood pressure once per day Blood Pressure No France Kimble PharmRonit Hemoglobin A1c < 7 Result Component 8.3( 11:25 AM EDT) No Mark-France Thompson, PharmD Quit using tobacco (cigarettes, smokeless, etc) Tobacco Use No Mark-France Thompson PharmD Procedures Procedure Name Priority Date/Time Associated Diagnosis Comments POCT GLYCATED HEMOGLOBIN, TOTAL Routine 11/10/2024 11:25 AM EDT Type 2 diabetes mellitus with hyperglycemia, with long-term current use of insulin ([facility]) POCT GLUCOSE Routine 11/10/2024 11:23 AM EDT Type 2 diabetes mellitus with hyperglycemia, with long-term current use of insulin ([facility]) POCT GLYCATED HEMOGLOBIN, TOTAL Routine 09/29/2024 11:12 AM EDT Type 2 diabetes mellitus with hyperglycemia, with long-term current use of insulin ([facility]) ALBUMIN, RANDOM URINE W/CREATININE Routine 01/07/2024 8:20 AM EDT LIPID PANEL, STANDARD Routine 01/07/2024 8:20 AM EDT HM COLONOSCOPY Routine 11/02/2023 HEPATITIS C AB W/REFL TO HCV RNA, QN, PCR Routine 07/12/2023 9:46 AM EST Encounter for hepatitis C screening test for low risk patient PANORAMIC RADIOGRAPHIC IMAGE Routine 01/25/2023 2:30 PM EDT PERIODIC ORAL EVALUATION - ESTABLISHED PATIENT Routine 01/25/2023 2:30 PM EDT PROPHYLAXIS - ADULT Routine 07/21/2011 1 2:00 AM EST INTRAORAL - COMPLETE SERIES OF RADIOGRAPHIC IMAGES Routine 02/27/2011 12:00 AM EDT from Last 3 Months or Most Recently Relevant to Health Maintenance Results * (ABNORMAL) POCT HGB A1C (11/10/2024 11:25 AM EDT) Only the most recent of2 resultswithin the time period is included. Hemoglobin A1C 8.3(A) 4.0 - 6.0 % QC Media Lot # [id number] Lot# Expiration Date [id number] Blood 11/10/2024 11:2 5 AM EDT Vanessa Arias MD POINT OF CARE TEST ENTER/E DIT ORDERABLES Final Result * (ABNORMAL) POCT Glucose (11/10/2024 11:23 AM EDT) Glucose Blood, POC 230(A) 60 - 200 mg/dL Comment:Fasting QC Media Lot # [id number] Lot# Expiration Date [id number] Blood Capillary blood specimen / Unknown 11/10/2024 11:23 AM EDT Vanessa Arias MD POINT OF CARE TEST ENTER/E DIT ORDERABLES Final Result * (ABNORMAL) Albumin, Random Urine W/Creatinine (01/07/2024 8:20 AM EDT) Creatinine, Urine 121.15 mg/dL [facility] Microalbumin Urine 84.0 mg/L [facility] Microalbum Creatinine Ratio Ur 69.3(H) <30 ug/mg cr [facility] Comment:Albumin/Creatinine R atio Reference Ranges: Normal: < 30 ug/mg creatinine Microalbuminuria: 30 - 300 ug/mg creatinineClinical Albuminuria: > 300 ug/mg creatinine 01/07/2024 8:20 AM EDT 01/07/2024 11:38 AM EDT Vanessa Arias MD LAB URINE ORDERABLES Final Result Performing Organization Address City/[facility] Co de Phone Number [facility] [address] [place] [address] [phone] * (ABNORMAL) Lipid Panel, Standard (01/07/2024 8:20 AM EDT) Triglycerides 86 <150 mg/dL [facility] Comment:Desirable Triglyceri de: less than 150 mg/dLBorderline High Triglyceride 150-199 mg/dLHigh Triglyceride: 200-499 mg/dLVery High Triglyceride: greater than or equal to 5OO mg/dL Cholesterol 109 <200 mg/dL [facility] Comment:Desirable Cholestero l: less than 200 mg/dLBorderline High Cholesterol: 200-239 mg/dLHigh Cholesterol: greater than 239 mg/dL LDL Cholesterol Calculated 53 <100 mg/dL [facility] Comment:Desirable LDL: less than 100 mg/dLNear Optimal/Above Optimal LDL: 110- 129 mg/dLBorderline High LDL: 130-159 mg/dLHigh LDL: 160-189 mg/dLVery High LDL: greater than or equal to 190 mg/dL HDL Cholesterol 39(L) >40 mg/dL [facility] Comment:Desirable HDL: great er than 40 mg/dL Note: This HDL assay may give artificially low results in patients with liver disease. 01/07/2024 8:20 AM EDT 01/07/2024 11:39 AM EDT Vanessa Arias MD LAB BLOOD ORDERABLES Final Result [facility] [address] [place] [phone] [phone] * (ABNORMAL) Hm Colonoscopy (11/02/2023) Colonoscopy Abnormal(A ) Normal Dary Godinez MD HEALTH MAINTENANCE Final Result * (ABNORMAL) Hepatitis C Antibody with Reflex to HCV, RNA, Quantitative, Real- Time PCR (07/12/2023 9:46 AM EST) Hepatitis C Antibody Reactive( A) Nonreactive [facility] Comment:Presumptive evidence of antibodies to HCV. Blood Venous blood specimen / Unknown 07/12/2023 9:46 AM EST 07/12/2023 11:23 AM EST Vanessa Arias MD LAB BLOOD ORDERABLES Final Result [facility] [address] [place] [phone] [phone] from Last 3 Months or Most Recently Relevant to Health Maintenance Insurance [facility] MEDICARE REPLACEMENT DENTAL - [facility] PPO DENTAL-[facility] MEDICAID STAND ADULT Advance Directives Documents on File Type Date Recorded Patient Gum Sprayer Expl anation Advance Directives and Living Will 03/12/2024 12:51 PM Health Care Proxy Care Teams Climatology Teacher Relationship Specialty Start Date End Date Starke, MD Vanessa [address] [place] [address] PCP - General Family Medicine 07/09/18 France Ferguson PharmD [address] [place] [address] Pharmacist Internal Medicine 11/30/22 Eva Mendez, AZAR [address] [place] [address] Line Dancer Family Medicine 08/14/23 Deloris Crowe OD [address] [place] [address] Optometry 06/20/24 Ashok Bo MD [address] [place] [address] 3rd [place] [address] General Surgery 06/20/24
--- OUTSIDE RECORDS SUMMARY | 2024-11-12 11:13 | XMS_ITS | Encounter Summary ---
Author Organization [employer] Address [address] [facility] 7t [place] [address] Care Team Providers Care Test Eng Name Role Phone Vanessa Arias MD Primary Care Provider + [phone] France Ferguson PharmD Unavailable Eva Mendez RN Unavailable [phone] Deloris Crowe OD Unavailable [phone] Ashok Bo MD Unavailable [phone] Encounter Details Date Type Department Care Team (Latest Contact Info) Description 11/10/2024 Travel Social History Tobacco Use Types Packs/Day [...] Description 11/14/2024 11:00 AM EDT Medication Management [facility] [address] [place] [phone] France Ferguson, PharmD [address] [place] [address] 03/02/2025 10:30 AM EDT Office Visit [facility] [address] [place] [phone] Vanessa Arias MD [address] [place] [phone] documented as of this encounter Goals Goal [...] documented as of this encounter Care Teams Test Eng Relationship Specialty Start Date End Date Vanessa Arias MD [address] [place] [address] PCP - General Family Medicine 07/09/18 France Ferguson, PharmD [address] [place] [address] Pharmacist Internal Medicine 11/30/22 Eva Mendez, AZAR [address] [place] [address] Garage Helper Family Medicine 08/14/23 Deloris Crowe OD [address] [place] [address] Optometry 06/20/24 Ashok Bo MD [address] [place] [address] 3rd [place] [address] General Surgery 06/20/24 documented as of this encounter
--- OUTSIDE RECORDS SUMMARY | 2024-11-12 11:13 | XMS_ITS | Encounter Summary ---
Author Organization [employer] Address [address] [facility] 7t [place] [address] Care Team Providers Care Debt And Budget Counselor Name Role Phone Vanessa Arias MD Primary Care Provider [phone] France Ferguson PharmD Unavailable Eva Mendez RN Unavailable [phone] Deloris Crowe OD Unavailable Ashok Bo MD Unavailable Encounter Details Date Type Department Care Team (Late st Contact Info) Description 02/01/2023 Abstract [facility] [address] [place], [place] [phone] Bryant Michelle DDS [address] [place] [address] Social History Tobacco Use Types Packs/Day Years [...] suspected to have Coronavirus/COVID-19? No / Unsure 01/05/2023 9:42 AM EDT documented as of this encounter Plan of Treatment Upcoming Encounters Date Type Department Care Team (Late st Contact Info) Description 11/14/2024 11:00 AM EDT Medication Management [facility] [address] [place] [phone] France Ferguson PharmD [address] [place] [address] 03/02/2025 10:30 AM EDT Office Visit [facility] [address] [place] [address] Vanessa Arias MD [address] [place] [address] documented as of this encounter Goals Goal Patient Goal Type Associated Problems Recent Progress Patient-Stated? Author Blood Pressure < 140/90 Blood Pressure 127/73(2024 11:22 AM EDT) No France Kimble PharmD Hemoglobin A1c < 7 Result Component 8.3( 11:25 AM EDT) No France Kimble PharmD documented as of this encounter Visit Diagnoses Not on filedocumented in this encounter Additional Health Concerns Assessment Noted Time PHQ-9 Depression Total Score: 0 01/06/20 23 10:24 AM EDT documented as of this encounter Care Teams Debt And Budget Counselor Relationship Specialty Start Date End Date Vanessa Arias MD [address] [place] [address] [phone] PCP - General Family Medicine 07/09/18 France Ferguson PharmD [address] [place] [address] Pharmacist Internal Medicine 11/30/22 Eva Mendez, AZAR [address] [place] [address] [phone] In Flight Refueling System Repairer Family Medicine 08/14/23 Deloris Crowe OD [address] [place] [address] Optometry 06/20/24 Ashok Bo MD [address] [place] [address] Drive 3rd [place] [address] General Surgery 06/20/24 documented as of this encounter
--- OUTSIDE RECORDS SUMMARY | 2024-11-12 11:13 | XMS_ITS | Encounter Summary ---
Author Organization [employer] Address [address] [facility] 7t [place] [address] Care Team Providers Care Endoscopy Support Specialist Name Role Phone Vanessa Arias MD Primary Care Provider [phone] France Ferguson PharmD Unavailable Eva Mendez RN Unavailable [phone] Deloris Crowe OD Unavailable Ashok Bo MD Unavailable Encounter Details Date Type Department Care Team (Late st Contact Info) Description 12/06/2022 Orders Only [facility] [address] [place], [place] [phone] Vanessa Arias MD [address] [place], [place] [phone] Type 2 diabetes mellitus with hyperglycemia, with long-term current use of insulin ([facility]) (Primary Dx) Social History Tobacco Use Types [...] was confirmed or suspected to have Coronavirus/COVID-19? Unable to assess 11/30/2022 9:45 AM EDT documented as of this encounter Plan of Treatment Upcoming Encounters Date Type Department Care Team (Late st Contact Info) Description 11/14/2024 11:00 AM EDT Medication Management [facility] [address] [place] [phone] France Ferguson PharmD [address] [place] [phone] 03/02/2025 10:30 AM EDT Office Visit [facility] [address] [place] [phone] Vanessa Arias MD [address] [place] [phone] documented as of this encounter Goals Goal [...] hyperglycemia, with long-term current use of insulin ([facility])- Primary documented in this encounter Care Teams Endoscopy Support Specialist Relationship Specialty Start Date End Date Vanessa Arias MD [address] [place] [phone] PCP - General Family Medicine 07/09/18 France Ferguson PharmD [address] [place] [phone] Pharmacist Internal Medicine 11/30/22 Eva Mendez, AZAR [address] [place] [phone] Spot Welder Line Family Medicine 08/14/23 Deloris Crowe OD [address] [place] [phone] Optometry 06/20/24 Ashok Bo MD [address]rd [place] [address] General Surgery 06/20/24 documented as of this encounter
[2024-11-12 11:51] LABS: Microalbum/Creatinine Ratio Ur 122.1 ug/mg cr (<30)
[2024-11-12 11:59] LABS: Alanine Aminotransferase 18 U/L (0-40); Albumin Level 3.9 g/dL (3.5-5.0); Alkaline Phosphatase 71 U/L (39-117); Anion Gap 13 (12-20); Aspartate Amino Transferase 22 U/L (5-37); Bilirubin Direct 0.1 mg/dL (0.0-0.5); Bilirubin Total 0.3 mg/dL (0.0-1.0); Blood Urea Nitrogen 16 mg/dL (9-16); Calcium 9.4 mg/dL (8.4-10.2); Carbon Dioxide 36 mmol/L (22-29); Chloride 99 mmol/L (96-108); Cholesterol 124 mg/dL (<200); Estimated Glomerular Filt Rate > 60; Glucose Random 140 mg/dL (60-115); HDL Cholesterol 35 mg/dL (>40); LDL Cholesterol Calculated 58 mg/dL (<100); Potassium 4.5 mmol/L (3.3-5.1); Sodium 143 mmol/L (135-145); Total Protein 6.8 g/dL (6.5-8.0); Triglycerides 157 mg/dL (<150)
== END 2024-11-12 10:04 | disposition home or self-care (01) ==
LOC: HO.HHCL 10:03
PROVIDERS: Visit Provider Family Medicine
DX: E11.65 Type 2 diabetes mellitus with hyperglycemia (principal); I10 Essential (primary) hypertension; Z79.4 Long term (current) use of insulin
CPT/HCPCS: 36415; 80048; 80061; 80076; 82043; 82570